=== PATIENT | male | born 1980 | race Caucasian/White ===

== ENCOUNTER 2018-06-27 08:55 | Emergency (ER) | payer BC, SELFPAY ==
[2018-06-27 09:00] VITALS: BP 136/90; PULSE 80; RESP 12; TEMP 37.1; O2SAT 98
--- NOTE | 2018-06-27 09:20 | W.ED.GENAD ---
Discharge Plan Disposition Patient Disposition: HOME Condition: Good Discharge Details Chief Complaint: Orthopedic Clinical Impression: Right calf pain Primary Care Provider: Jadon Tony ED Provider: Brijesh Waddell Home Meds and New Rx's Prescriptions: Continue mirtazapine 15 MG tablet 30 mg PO HS RF: 0 lorazepam 1 MG tablet 1 mg PO PRN PRNRF: 0 albuterol sulfate [ProAir HFA] 200 PUFF HFA aerosol inhaler 2 puff Inhalation PRN PRNRF: 0 ibuprofen 600 MG tablet 600 mg PO TID PRN PRN (Reason: Pain) Qty: 30 RF: 0 Discharge Instructions Instructions: Leg Pain (ED) Additional Instructions: follow up as scheduled with your primary care provider this week if you have fevers, significant worsening pain or your leg becomes swollen return to the emergency department take 1000mg tylenol and 600mg ibuprofen every 6 hours for pain as needed Medical Decision Making 37 yo male comes in with right upper lateral calf pain since yesterday with no known trauma. He states he did drink quite a lot of alcohol on Thursday night but denies falling or other trauma. He has pain with palpation to the right upper lateral calf. No swelling, redness or pain in mid calf, full rom of the knee and ankle with intact sensation and pulses, not cold or hot to touch. No fluctuance or crepitus or rashes. I suspect muscle strain as he has increased pain when walking up stairs. I did recommend u/s tomorrow to eval for possible dvt though low risk but he declined as he'd rather wait and see his pcp on Thursday. He was given return precautions and advise on dosing for tylenol and ibuprofen Differential Diagnosis calf strain, joe's cyst, dvt HPI General Mode of arrival: ambulatory. Date/Time Provider Initiated Documentation: 06/27/18 09:05. Limitations to Documentation: no limitations. Information obtained by: patient. History of Present Illness 37 year old M presents to the emergency department with the chief complaint of right calf pain, described as mild, with intensity rated at 3. Quality is described as aching, and is localized to the right and lower extremity. Patient reports no radiation. Patient started experiencing this day(s) (1) and it has been constant. No relieving factors improve symptom(s), Movement worsens symptoms . Patient notes no other symptoms.. Patient did receive the following treatments prior to arrival, none Related Data Home Medications Medication Instructions Recorded Confirmed albuterol sulfate [ProAir HFA] 2 puff INHALATION PRN PRN 12/04/15 06/27/18 lorazepam 1 mg PO PRN PRN 12/04/15 06/27/18 mirtazapine 30 mg PO HS 12/04/15 06/27/18 Allergies Allergy/AdvReac Type Severity Reaction Status Date / Time No Known Allergies Allergy Unverified 06/27/18 09:24 General Stated Complaint: Orthopedic WAYNE: 4 Review of Systems Review of Systems All systems reviewed & are unremarkable except as noted in HPI and below Constitutional Denies chills, Denies fever(s) and Denies weakness ENT Denies change in voice Cardiovascular Denies dyspnea Respiratory Denies dyspnea Gastrointestinal Denies abdominal pain, Denies nausea and Denies vomiting Genitourinary Denies dysuria Musculoskeletal Denies joint swelling Integumentary/Breasts Denies rash Neurologic Denies weakness [facility] Social History Smoking/Tobacco Use Status: Current every day Exam Const General: no acute distress Orientation: alert HENMT Head: normal to inspection Ears: external ears normal General nose exam: external nose normal Mouth: moist mucous membranes Eyes General: appearance normal, both eyes and all related structures Neck Neck: normal visual inspection Resp Effort & Inspection: normal respiratory effort and able to speak in complete sentences Cardio Rate: regular rate Skin General skin exam: no rashes or lesions noted Neuro General: alert and oriented x3 Extrem General: normal to inspection Psych Mental Status: mental status grossly normal Course Vital Signs Temperature 37.1 C 06/27/18 09:00 Pulse 80 06/27/18 09:00 Respiratory Rate 12 06/27/18 09:00 Blood Pressure 136/90 06/27/18 09:00 Pulse Oximetry 98 06/27/18 09:00 Temperature 37.1 C 06/27/18 09:00 Temperature Source Temporal Artery Scan 06/27/18 09:00 Pulse 80 06/27/18 09:00 Respiratory Rate 12 06/27/18 09:00 Blood Pressure 136/90 06/27/18 09:00 Blood Pressure Position Sitting 06/27/18 09:00 Pulse Oximetry 98 06/27/18 09:00 Oxygen Delivery Method Room Air 06/27/18 09:00 Oxygen Flow Rate 0 06/27/18 09:00 Pain Level 3 06/27/18 09:13 Comment 06/27/18 09:00
--- NOTE | 2018-06-27 09:24 | ED.GENADUL_ITS ---
Discharge Plan Disposition Patient Disposition: HOME Condition: Good Discharge Details Chief Complaint: Orthopedic Clinical Impression: Right calf pain Primary Care Provider: Jadon Tony ED Provider: Brijesh Waddell Home Meds and New Rx's Prescriptions: Continue mirtazapine 15 MG tablet 30 mg PO HS RF: 0 lorazepam 1 MG tablet 1 mg PO PRN PRNRF: 0 albuterol sulfate [ProAir HFA] 200 PUFF HFA aerosol inhaler 2 puff Inhalation PRN PRNRF: 0 ibuprofen 600 MG tablet 600 mg PO TID PRN PRN (Reason: Pain) Qty: 30 RF: 0 Discharge Instructions Instructions: Leg Pain (ED) Additional Instructions: follow up as scheduled with your primary care provider this week if you have fevers, significant worsening pain or your leg becomes swollen return to the emergency department take 1000mg tylenol and 600mg ibuprofen every 6 hours for pain as needed Medical Decision Making 37 yo male comes in with right upper lateral calf pain since yesterday with no known trauma. He states he did drink quite a lot of alcohol on Thursday night but denies falling or other trauma. He has pain with palpation to the right upper lateral calf. No swelling, redness or pain in mid calf, full rom of the knee and ankle with intact sensation and pulses, not cold or hot to touch. No fluctuance or crepitus or rashes. I suspect muscle strain as he has increased pain when walking up stairs. I did recommend u/s tomorrow to eval for possible dvt though low risk but he declined as he'd rather wait and see his pcp on Thursday. He was given return precautions and advise on dosing for tylenol and ibuprofen Differential Diagnosis calf strain, joe's cyst, dvt HPI General Mode of arrival: ambulatory . Date/Time Provider Initiated Documentation: 06/27/18 09:05 . Limitations to Documentation: no limitations . Information obtained by: patient . History of Present Illness 37 year old M presents to the emergency department with the chief complaint of right calf pain, described as mild, with intensity rated at 3. Quality is described as aching, and is localized to the right and lower extremity. Patient reports no radiation. Patient started experiencing this day(s) (1) and it has been constant. No relieving factors improve symptom(s), Movement worsens symptoms . Patient notes no other symptoms.. Patient did receive the following treatments prior to arrival, none Related Data Home Medications Medication Instructions Recorded Confirmed albuterol sulfate [ProAir HFA] 2 puff INHALATION PRN PRN 12/04/15 06/27/18 lorazepam 1 mg PO PRN PRN 12/04/15 06/27/18 mirtazapine 30 mg PO HS 12/04/15 06/27/18 Allergies Allergy/AdvReac Type Severity Reaction Status Date / Time No Known Allergies Allergy Unverified 06/27/18 09:24 General Stated Complaint: Orthopedic WAYNE: 4 Review of Systems Review of Systems All systems reviewed & are unremarkable except as noted in HPI and below Constitutional Denies chills, Denies fever(s) and Denies weakness ENT Denies change in voice Cardiovascular Denies dyspnea Respiratory Denies dyspnea Gastrointestinal Denies abdominal pain, Denies nausea and Denies vomiting Genitourinary Denies dysuria Musculoskeletal Denies joint swelling Integumentary/Breasts Denies rash Neurologic Denies weakness [facility] Social History Smoking/Tobacco Use Status: Current every day Exam Const General: no acute distress Orientation: alert HENMT Head: normal to inspection Ears: external ears normal General nose exam: external nose normal Mouth: moist mucous membranes Eyes General: appearance normal, both eyes and all related structures Neck Neck: normal visual inspection Resp Effort & Inspection: normal respiratory effort and able to speak in complete sentences Cardio Rate: regular rate Skin General skin exam: no rashes or lesions noted Neuro General: alert and oriented x3 Extrem General: normal to inspection Psych Mental Status: mental status grossly normal Course Vital Signs Temperature 37.1 C 06/27/18 09:00 Pulse 80 06/27/18 09:00 Respiratory Rate 12 06/27/18 09:00 Blood Pressure 136/90 06/27/18 09:00 Pulse Oximetry 98 06/27/18 09:00 Temperature 37.1 C 06/27/18 09:00 Temperature Source Temporal Artery Scan 06/27/18 09:00 Pulse 80 06/27/18 09:00 Respiratory Rate 12 06/27/18 09:00 Blood Pressure 136/90 06/27/18 09:00 Blood Pressure Position Sitting 06/27/18 09:00 Pulse Oximetry 98 06/27/18 09:00 Oxygen Delivery Method Room Air 06/27/18 09:00 Oxygen Flow Rate 0 06/27/18 09:00 Pain Level 3 06/27/18 09:13 Comment 06/27/18 09:00
== END 2018-06-27 09:37 | disposition home or self-care (01) ==
LOC: ER 09:34
PROVIDERS: Emergency Provider Emergency Medicine; PCP Specialist/Technologist Athletic Trainer
DX: M79.661 Pain in right lower leg (principal)
CPT/HCPCS: 99282

== ENCOUNTER 2018-10-11 18:40 | Emergency (ER) | payer BC, SELFPAY ==
--- NOTE | 2018-10-11 18:41 | W.ED.GENAD ---
Discharge Plan Disposition Patient Disposition: HOME Condition: Stable Discharge Details Chief Complaint: RespSymp Clinical Impression: Influenza Reason For Visit: resp/fever Primary Care Provider: Jadon Tony ED Provider: Brijesh Waddell Home Meds and New Rx's Prescriptions: New oseltamivir [Tamiflu] 75 mg capsule 75 mg PO BID 5 Days Qty: 10 RF: 0 Continued mirtazapine 15 MG tablet 30 mg PO HS RF: 0 lorazepam 1 MG tablet 1 mg PO PRN PRNRF: 0 albuterol sulfate [ProAir HFA] 200 PUFF HFA aerosol inhaler 2 puff Inhalation PRN PRNRF: 0 ibuprofen 600 mg Tablet 600 mg PO PRNRF: 0 Discharge Instructions Additional Instructions: Try to drink fluids to stay hydrated you can take 1000mg tylenol and 600mg ibuprofen every 6 hours for pain as needed for pain/fever follow up with your primary care provider within a week if not better if you feel you are more ill, have difficulty breathing or persistent vomit return to the emergency deparment Stand Alone Forms: Work Release Medical Decision Making 38 yo male with hx of asthma, smoker, who comes in with chief complaint of not feeling well for 3 days. States he has had intermittent fevers to 103 and chills, dry cough, myalgias, and diarrhea. Denies rashes, neck stiffness, abdominal pain, rashes or recent travel. Denies alcohol or drug use. 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 Clear lungs on exam and his constellation of symptoms do not fit with clinical picture of pna. denies ivdu, no murmurs or other stigamta of endocarditis. Do not feel labs or imaging indicated, suspect he has the flu and given no improved symptms after 3 days and hx of asthma will tx with tamiflu. He is tolerating PO and stable for outpatient management. Advsised f/u with pcp and return precautions given Differential Diagnosis uri, influenza, pna HPI General Mode of arrival: ambulatory. Date/Time Provider Initiated Documentation: 10/11/18 18:41. Limitations to Documentation: no limitations. Information obtained by: patient. History of Present Illness 38 year old M presents to the emergency department with the chief complaint of myalgias and fever, described as moderate, with intensity rated at 4. Patient reports no radiation. Patient started experiencing this day(s) (3) and it has been constant and intermittent. No relieving factors improve symptom(s), No exacerbating factors reported . Patient notes other (diarrhea). Patient did receive the following treatments prior to arrival, none Related Data Home Medications Medication Instructions Recorded Confirmed albuterol sulfate [ProAir HFA] 2 puff INHALATION PRN PRN 12/04/15 10/11/18 lorazepam 1 mg PO PRN PRN 12/04/15 10/11/18 mirtazapine 30 mg PO HS 12/04/15 10/11/18 ibuprofen 600 mg PO PRN 10/11/18 oseltamivir [Tamiflu] 75 mg PO BID 5 Days #10 cap 10/11/18 Previous Rx's Medication Instructions Recorded oseltamivir [Tamiflu] 75 mg PO BID 5 Days #10 cap 10/11/18 Allergies Allergy/AdvReac Type Severity Reaction Status Date / Time No Known Allergies Allergy Unverified 06/27/18 09:24 General WAYNE: 4 Review of Systems Review of Systems All systems reviewed & are unremarkable except as noted in HPI and below Cardiovascular Denies chest pain and Denies dyspnea Respiratory Denies cough and Denies dyspnea Gastrointestinal Denies abdominal pain, Denies nausea and Denies vomiting Integumentary/Breasts Denies rash PFSH Social History Smoking and Tabacco status: Current every day Exam Const General: no acute distress Orientation: alert HENMT Head: normal to inspection Ears: external ears normal General nose exam: external nose normal Mouth: moist mucous membranes Eyes General: appearance normal, both eyes and all related structures Neck Neck: normal visual inspection Resp Effort & Inspection: normal respiratory effort and able to speak in complete sentences Cardio Rate: regular rate Skin General skin exam: no rashes or lesions noted Neuro General: alert and oriented x3 Extrem General: normal to inspection Psych Mental Status: mental status grossly normal
[2018-10-11 18:58] VITALS: BP 135/90; PULSE 95; RESP 18; TEMP 36.8; O2SAT 97
--- NOTE | 2018-10-11 19:09 | ED.GENADUL_ITS ---
Discharge Plan Disposition Patient Disposition: HOME Condition: Stable Discharge Details Chief Complaint: RespSymp Clinical Impression: Influenza Reason For Visit: resp/fever Primary Care Provider: Jadon Tony ED Provider: Brijesh Waddell Home Meds and New Rx's Prescriptions: New oseltamivir [Tamiflu] 75 mg capsule 75 mg PO BID 5 Days Qty: 10 RF: 0 Continued mirtazapine 15 MG tablet 30 mg PO HS RF: 0 lorazepam 1 MG tablet 1 mg PO PRN PRNRF: 0 albuterol sulfate [ProAir HFA] 200 PUFF HFA aerosol inhaler 2 puff Inhalation PRN PRNRF: 0 ibuprofen 600 mg Tablet 600 mg PO PRNRF: 0 Discharge Instructions Additional Instructions: Try to drink fluids to stay hydrated you can take 1000mg tylenol and 600mg ibuprofen every 6 hours for pain as needed for pain/fever follow up with your primary care provider within a week if not better if you feel you are more ill, have difficulty breathing or persistent vomit return to the emergency deparment Stand Alone Forms: Work Release Medical Decision Making 38 yo male with hx of asthma, smoker, who comes in with chief complaint of not feeling well for 3 days. States he has had intermittent fevers to 103 and chills, dry cough, myalgias, and diarrhea. Denies rashes, neck stiffness, abdominal pain, rashes or recent travel. Denies alcohol or drug use. He is speaking in full sentences in clear lungs with no meningismus, no severe headaches to suggest handkerchief sample clerk infection. Clear lungs on exam and his constellation of symptoms do not fit with clinical picture of pna. denies ivdu, no murmurs or other stigamta of endocarditis. Do not feel labs or imaging indicated, suspect he has the flu and given no improved symptms after 3 days and hx of asthma will tx with tamiflu. He is tolerating PO and stable for outpatient management. Advsised f/u with pcp and return precautions given Differential Diagnosis uri, influenza, pna HPI General Mode of arrival: ambulatory . Date/Time Provider Initiated Documentation: 10/11/18 18:41 . Limitations to Documentation: no limitations . Information obtained by: patient . History of Present Illness 38 year old M presents to the emergency department with the chief complaint of myalgias and fever, described as moderate, with intensity rated at 4. Patient reports no radiation. Patient started experiencing this day(s) (3) and it has been constant and intermittent. No relieving factors improve symptom(s), No exacerbating factors reported . Patient notes other (diarrhea). Patient did receive the following treatments prior to arrival, none Related Data Home Medications Medication Instructions Recorded Confirmed albuterol sulfate [ProAir HFA] 2 puff INHALATION PRN PRN 12/04/15 10/11/18 lorazepam 1 mg PO PRN PRN 12/04/15 10/11/18 mirtazapine 30 mg PO HS 12/04/15 10/11/18 ibuprofen 600 mg PO PRN 10/11/18 oseltamivir [Tamiflu] 75 mg PO BID 5 Days #10 cap 10/11/18 Previous Rx's Medication Instructions Recorded oseltamivir [Tamiflu] 75 mg PO BID 5 Days #10 cap 10/11/18 Allergies Allergy/AdvReac Type Severity Reaction Status Date / Time No Known Allergies Allergy Unverified 06/27/18 09:24 General WAYNE: 4 Review of Systems Review of Systems All systems reviewed & are unremarkable except as noted in HPI and below Cardiovascular Denies chest pain and Denies dyspnea Respiratory Denies cough and Denies dyspnea Gastrointestinal Denies abdominal pain, Denies nausea and Denies vomiting Integumentary/Breasts Denies rash PFSH Social History Smoking and Tabacco status: Current every day Exam Const General: no acute distress Orientation: alert HENMT Head: normal to inspection Ears: external ears normal General nose exam: external nose normal Mouth: moist mucous membranes Eyes General: appearance normal, both eyes and all related structures Neck Neck: normal visual inspection Resp Effort & Inspection: normal respiratory effort and able to speak in complete sentences Cardio Rate: regular rate Skin General skin exam: no rashes or lesions noted Neuro General: alert and oriented x3 Extrem General: normal to inspection Psych Mental Status: mental status grossly normal
== END 2018-10-11 19:12 | disposition home or self-care (01) ==
PROVIDERS: Emergency Provider Emergency Medicine; PCP Specialist/Technologist Athletic Trainer
DX: J11.1 Influenza due to unidentified influenza virus with other respiratory manifestations (principal); J45.909 Unspecified asthma, uncomplicated; F17.210 Nicotine dependence, cigarettes, uncomplicated
CPT/HCPCS: 99283

== ENCOUNTER 2019-03-10 14:06 | Outpatient (REF) | payer BC, SELFPAY ==
[2019-03-10 22:03] LABS: ALT 77 U/L (12-78); AST 28 U/L (15-37); Albumin 4.5 g/dL (3.4-5.0); Alkaline Phosphatase 70 U/L (46-116); Anion Gap 12.1 mmol/L (3-11); BUN 15 mg/dL (7-18); Bilirubin, Total 0.5 mg/dL (0.2-1.0); CO2 23.9 mmol/L (21.0-32.0); CREATININE 0.88 mg/dL (0.70-1.30); Calcium 9.1 mg/dL (8.5-10.1); Calculated LDL 155 mg/dL; Chloride 104 mmol/L (98-107); Cholesterol 229 mg/dL (50-200); Glucose 89 mg/dL (70-100); HDL Cholesterol 41 mg/dL (40-60); Potassium 4.3 mmol/L (3.5-5.1); Sodium 140 mmol/L (136-145); Total Protein 7.8 g/dL (6.4-8.2); Triglyceride 165 mg/dL (30-150)
== END 2019-03-10 14:26 ==
LOC: NCHCN 14:06
PROVIDERS: PCP Specialist/Technologist Athletic Trainer; Visit Provider Specialist/Technologist Athletic Trainer
DX: Z00.00 Encounter for general adult medical examination without abnormal findings (principal); E78.5 Hyperlipidemia, unspecified; R79.89 Other specified abnormal findings of blood chemistry
CPT/HCPCS: 80053; 80061; 83721

== ENCOUNTER 2019-11-09 16:39 | Emergency (ER) | payer BC, SELFPAY ==
[2019-11-09] VITALS (38 sets, daily range): BP systolic 105–151; BP diastolic 70–110; PULSE 59–94; RESP 11–24; TEMP 37.1; O2SAT 93–97
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
[2019-11-09] MEDS: Normal Saline 1,000 ML 1000 ML IV (17:19)
[2019-11-09 17:22] LABS: Abs Immature Grans 0.02 k/cumm (0.0-0.09); Absolute Basophil Count 0.03 k/cumm (0.0-0.2); Absolute Eosinophil Count 0.16 k/cumm (0.0-0.7); Absolute Lymphocyte Count 2.76 k/cumm (1.2-3.4); Absolute Monocyte Count 0.77 k/cumm (0.11-0.7); Absolute Neutrophil Count 6.25 k/cumm (1.2-6.7); Basophils % 0.3; Eosinophils % 1.6; HCT 45.3 % (40.0-50.0); HGB 16.1 g/dL (13.5-17.5); Immature Grans % 0.2 %; Lymphocytes % 27.6; Mean Corp. HGB Concentration 35.5 g/dL (32.0-36.0); Mean Corpuscular Hemoglobin 31.1 pg (27.0-33.0); Mean Corpuscular Volume 87.6 fL (80-95); Mean Platelet Volume 9.3 fL (8.0-11.0); Monocytes % 7.7; Neutrophils % 62.6; Platelet Count 313 x1000/uL (130-400); RBC 5.17 m/cumm (4.50-6.00); RBC Distribution Width 12.8 % (11.8-14.1); White Blood Cell Count 9.99 k/cumm (4.4-10.8)
--- NOTE | 2019-11-09 17:30 | DI.RAD_ITS ---
EXAM: XR CHEST 2V PA LATERAL CLINICAL HISTORY: chest pain TECHNIQUE: 2D digital imaging was performed. COMPARISON: No exams were available for comparison FINDINGS: MEDIASTINUM: Normal. HEART: Normal. PULMONARY VASCULATURE: Normal. LUNGS: Clear. PLEURAL SPACE: No pleural effusion or pneumothorax. BONE:Normal. OTHER FINDINGS:Normal. IMPRESSION: No acute pulmonary findings. DATA REPOSITORY: RADIATION DOSE DELIVERED:
[2019-11-09 17:39] LABS: ALT 52 U/L (16-63); AST 22 U/L (15-37); Albumin 4.5 g/dL (3.4-5.0); Alkaline Phosphatase 65 U/L (46-116); Anion Gap 12.1 mmol/L (3-11); BUN 11 mg/dL (7-18); Bilirubin, Total 0.4 mg/dL (0.2-1.0); CO2 25.9 mmol/L (21.0-32.0); Calcium 9.6 mg/dL (8.5-10.1); Chloride 103 mmol/L (98-107); Glucose 97 mg/dL (74-106); Lipase 156 U/L (73-393); Potassium 3.7 mmol/L (3.5-5.1); Sodium 141 mmol/L (136-145); Total Protein 8.2 g/dL (6.4-8.2)
[2019-11-09 17:43] LABS: Troponin I < 0.05 ng/Ml (<0.06)
--- NOTE | 2019-11-09 17:48 | DI.VRAD_ITS ---
PROCEDURE INFORMATION: Exam: XR Chest, 2 Views Exam date and time: 11/09/2019 5:32 PM Age: 39 years old Clinical indication: Other: Chest pain TECHNIQUE: Imaging protocol: XR of the chest Views: 2 views. COMPARISON: CR LEFT RIBS TO INCLUDE CXR 06/07/2015 3:42 PM FINDINGS: Lungs: Unremarkable. No consolidation. Pleural space: Unremarkable. No pleural effusion. No pneumothorax. Heart/Mediastinum: Unremarkable. No cardiomegaly. Bones/joints: Unremarkable. IMPRESSION: No acute findings. Dictated and Authenticated by: Luan Hooper MD. Ordering:BALZE Gama MD
[2019-11-09 17:54] LABS: D-Dimer 152 ng/mlFEU (<500)
--- NOTE | 2019-11-09 19:06 | NUR.NOTE ---
Nursing Note:Pt resting in bed, texting on cell phone. No c/o or requests at this time. Waiting for troponin redraw
--- NOTE | 2019-11-09 20:11 | NUR.NOTE ---
Nursing Note:repeat trop drawn from R AC. Pt reports 0 pain.
[2019-11-09 20:55] LABS: Troponin I < 0.05 ng/Ml (<0.06)
== END 2019-11-09 21:55 | disposition home or self-care (01) ==
PROVIDERS: Emergency Provider Physician Assistant; PCP Specialist/Technologist Athletic Trainer
DX: R07.89 Other chest pain (principal); F41.9 Anxiety disorder, unspecified; R20.2 Paresthesia of skin; F17.210 Nicotine dependence, cigarettes, uncomplicated; Z63.5 Disruption of family by separation and divorce
CPT/HCPCS: 36415; 80053; 83690; 93005; 96360; 99285; 71046; 84484; 85025; 85379; 93010; 93225

== ENCOUNTER 2019-11-16 08:25 | Outpatient (CLI) | payer BC, SELFPAY ==
--- NOTE | 2019-11-17 09:20 | W.HOLTRPT ---
Date of service: 11/17/19 Time of Service: 09:20 Holter Monitor Report Holter Monitor Note: This was a Holter monitor that recorded for 1 day, 21 hours and 21-minute. Rhythm throughout was sinus. Average heart rate was 82. Minimum heart rate was 54 and maximum heart rate 163. There were very rare atrial and ventricular ectopic beats. There was no atrial fibrillation or ventricular tachycardia. There were no pauses No patient symptoms were reported
== END 2019-11-16 08:45 ==
PROVIDERS: PCP Specialist/Technologist Athletic Trainer; Visit Provider Physician Assistant
DX: R07.89 Other chest pain (principal); R42 Dizziness and giddiness; R20.2 Paresthesia of skin
CPT/HCPCS: 93226

== ENCOUNTER 2019-12-08 00:18 | Outpatient (CLI) | payer BC, SELFPAY ==
--- NOTE | 2019-12-08 08:00 | ETT_ITS ---
APPROVED REPORT Exam: Exercise Treadmill Patient Location: Out-Patient Room/Bed: Stress Nurse: Mariela Goetz RN BMI: 27.19 Baseline Rhythm: Sinus Rhythm Indications: Chest pain. Medical History Medical History: Depression Allergies: No known drug allergies Cardiac Risk Factors: Smoking, Asthma Pretest Chest Pain Characteristics: Non-exertional Chest pain Exercise History: Indeterminate Lung Sounds: Clear to auscultation Heart Sounds: Regular Stress Test Details Test: Exercise stress testing was performed using a Darrell protocol. Rest Stress HR Resting HR Supine: 63 bpm Max Heart Rate (APMHR): 180 bpm Resting HR Standin bpm Target HR (85% APMHR): 153 bpm Max HR Achieved: 160 bpm % of APMHR: 88 Recovery HR: 87 bpm HR response to stress: Normal HR response to stress BP Resting BP Supine: 120/78 mmHg Resting BP Standin/80 mmHg Max BP: 148/84 mmHg Recovery BP: 128/80 mmHg BP response to stress: Normal blood pressure response to stress. ECG Resting ECG: Sinus Rhythm Stress ECG: Sinus Tachycardia ST Change: No significant ST segment changes Arrhythmia: None Recovery ECG: Sinus Rhythm Recovery ST Change: No significant ST segment changes Recovery Arrhythmia: None Clinical Reason for Termination: Fatigue Stress Symptoms: General Fatigue Exercise duration: 10 min01 sec Highest Stage Reached: Stage 4: 4.2 mph at 16% grade. Exercise capacity: 11.83 METs Functional Capacity: Average Capacity Angina Score: None Stress ECG Conclusion 1. The patient exercised for 10 minutes (12 METS). Rate-pressure product was 22,000. Exercise was s topped due to fatigue. 2. The patient had no symptoms suggestive of exercise-induced angina. 3. No ischemia on the ECG portion of the exam. 4. The Jett Score (10) estimates an annual cardiovascular mortality of 0% and a five year survival of 96% Using the Jett Score there is a low probability of any angiographic coronary disease. Stress Test Summary STAGE Time (mins) Speed (mph) Grade (%) HR BP SYMPTOMS METS Supine 63 120/78 Standing 92 124/80 1 3 1.7 10 95 128/82 4.6 2 6 2.5 12 113 130/86 7 3 9 3.4 14 146 142/84 10.2 4 12 4.2 16 160 12.9 1 min recovery 125 148/84 3 min recovery 92 140/78 6 min recovery 87 128/80
== END 2019-12-08 00:38 ==
PROVIDERS: PCP Specialist/Technologist Athletic Trainer; Visit Provider Nurse Practitioner Family
DX: R07.89 Other chest pain (principal); F32.9 Major depressive disorder, single episode, unspecified; J45.909 Unspecified asthma, uncomplicated; F17.210 Nicotine dependence, cigarettes, uncomplicated
CPT/HCPCS: 93017

== ENCOUNTER 2020-01-29 12:23 | Emergency (ER) | payer BC, SELFPAY ==
[2020-01-29 12:26] VITALS: BP 140/84; PULSE 80; RESP 16; TEMP 36.4; O2SAT 99
--- NOTE | 2020-01-29 13:00 | ED.GENADUL_ITS ---
Discharge Plan Disposition Patient Disposition: HOME Condition: Good Discharge Details Chief Complaint: Laceration Clinical Impression: Finger laceration Primary Care Provider: Jadon Tony ED Provider: Helen Ribera Home Meds and New Rx's Prescriptions: Continued mirtazapine 15 MG tablet 30 mg PO HS RF: 0 lorazepam 1 MG tablet 1 mg PO PRN PRNRF: 0 albuterol sulfate [ProAir HFA] 200 PUFF HFA aerosol inhaler 2 puff Inhalation PRN PRNRF: 0 ibuprofen 600 mg Tablet 600 mg PO Q4H PRN PRNRF: 0 Discharge Instructions Instructions: Finger Laceration (ED) Additional Instructions: Keep wound clean, dry, covered. Tylenol and/or ibuprofen as needed for discomfort. Please keep current dressing on until tomorrow. After that time, please cover with Band-Aid and cover gloves when appropriate. You may wash with running water and soap. Monitor wound for signs infection bleeding redness, warmth, drainage, increased pain, fever/chills. If you develop these or other new/worsening symptoms please seek care urgently once again. Return in 1 week for suture removal. Tetanus was updated today. Referrals: Jadon Tony [Primary Care Provider] - Discharge Data Discharge Date/Time-TO BE ENTERED AT DEPARTURE: 01/29/20 13:47 Medical Decision Making Patient is a pleasant [id number] male presenting today with chief complaint of laceration to the left ring finger. He reports a prior to arrival he was trying to place a screen on his phone when he slipped with his stool and suffered a 2 cm laceration along the ulnar side of the left ring finger. Sen sation is intact. No active bleeding. Tetanus is out of date. He denies other injury at the time of the incident. On exam, patient has a 2 cm curvilinear laceration. This is into the subcutaneous tissue but all deep structures seem to be intact. Sensation is intact distal to this area. Expressed capillary refill. Patient and I discussed wound closure options. We discuswsed risks/benefits of clsure with adhesive. He voices understanding and wishes to proceed. Please see procedure note. Digital block was preformed using standard, sterile technique. This sufficiently anesthetized the area. Wound was then copiously irregated with sterile saline, cleansed to base in a bloodless field with no fb or debris noted. Wound edges easily reapproximated. #3 simple interupted stitches were placed. Bulky, sterile dressing was then applied. Patient and I discussed wound care in depth. We discussed care of stitches. He was given return precuations, in particular, signs of infection. He will return in one week for reevaluation and suture removal. All of his quesitons and concerns were addressed, he is in agreement with this plan. Tetanus updated today. HPI General Mode of arrival: ambulatory . Date/Time Provider Initiated Documentation: 01/29/20 12:31 . Limitations to Documentation: no limitations . Information obtained by: patient and RN notes reviewed . History of Present Illness 39 year old M presents to the emergency department with the chief complaint of left ring finger laceration, described as mild, with intensity rated at 2. Quality is described as aching, and is localized to the left and upper extremity. Patient reports no radiation. Patient started experiencing this minute(s) and it has been constant. No relieving factors improve symptom(s), No exacerbating factors reported . Patient notes no other symptoms.. Patient did receive the following treatments prior to arrival, none Related Data Home Medications Medication Instructions Recorded Confirmed albuterol sulfate [ProAir HFA] 2 puff INHALATION PRN PRN 12/04/15 01/29/20 lorazepam 1 mg PO PRN PRN 12/04/15 01/29/20 mirtazapine 30 mg PO HS 12/04/15 01/29/20 ibuprofen 600 mg PO Q4H PRN PRN 10/11/18 01/29/20 Allergies Allergy/AdvReac Type Severity Reaction Status Date / Time No Known Allergies Allergy Unverified 01/29/20 12:31 General Stated Complaint: Laceration WAYNE: 3 Review of Systems Constitutional Constitutional: Reports as per HPI, Denies chills and Denies fever(s) Musculoskeletal Musculoskeletal: Reports as per HPI Integumentary/Breasts Skin/Breast: Reports as per HPI Neurologic Neurologic: Reports as per HPI, Denies sensory deficit and Denies paresthesias [facility] Social History Smoking/Tobacco Use Status: Current every day Tobacco Type: cigarettes Alcohol Intake: current Alcohol Intake frequency: a few times a week Drug use: Occasionally Substance use type: marijuana Do you feel safe at home: Yes Do you feel safe in your relationship?: Yes Exam Const General: cooperative, healthy appearing, comfortable, no acute distress and well developed Nutritional Appearance: average body habitus and well nourished Orientation: alert and awake Resp Effort & Inspection: normal respiratory effort, able to speak in complete sentences and no respiratory distress Cardio Rate: regular rate Rhythm: regular rhythm Skin Trauma: laceration (as drawn below) Neuro General: patient alert and patient awake Cognition: normal cognition Speech: speech normal Gait: normal gait Sensory Exam: no sensory deficits noted Extrem Left upper extremity: normal to inspection, full ROM, normal capillary refill, no joint enlargement and hand Details: abnormal to inspection (laceration as drawn below) Hand/finger images: 1. Curvilinear 2 cm laceration into the subcutaneous tissue. No deep structures involved. Sensation is intact distally. No active bleeding. Full range of motion. Psych Appearance: grossly normal and well kempt Mental Status: mental status grossly normal Speech and Movement: speech and movement normal Course Vital Signs Vital signs: Vital Signs Temperature 36.4 C L 01/29/20 12:26 Pulse 80 01/29/20 12:26 Respiratory Rate 16 01/29/20 12:26 Blood Pressure 140/84 01/29/20 12:26 Pulse Oximetry 99 01/29/20 12:26 Temperature 36.4 C L 01/29/20 12:26 Temperature Source Tympanic 01/29/20 12:26 Pulse 80 01/29/20 12:26 Respiratory Rate 16 01/29/20 12:26 Respiratory Effort 01/29/20 12:31 Blood Pressure 140/84 01/29/20 12:26 Blood Pressure Position Sitting 01/29/20 12:26 Pulse Oximetry 99 01/29/20 12:26 Oxygen Delivery Method Room Air 01/29/20 12:26 Oxygen Flow Rate 0 01/29/20 12:26 Pain Level 2 01/29/20 12:26 Procedures Laceration Laceration 1: Site: hand Side (If applicable): left Size (cm): 2 Description: irregular and clean Depth: simple, single layer Local Anesthetic: Lidocaine 1% Amount of anesthesia used (mL): 5 (digital block) Pre-repair: wound explored, irrigated extensively and deep structures intact Skin layer closed with: nylon Size (cm): 5-0 Number of sutures: 3 Technique: simple, interrupted
[2020-01-29] MEDS: Lidocaine 1% Multi-Dose 50 ML VIAL (13:24)
[2020-01-29] MEDS: Lidocaine/Epinephri/Tetracaine Topical Gel 3 ML (13:24)
[2020-01-29 13:58] VITALS: BP 140/84; PULSE 80; RESP 16; TEMP 36.4; O2SAT 99
== END 2020-01-29 13:47 | disposition home or self-care (01) ==
PROVIDERS: Emergency Provider Physician Assistant; PCP Specialist/Technologist Athletic Trainer
DX: S61.215A Laceration without foreign body of left ring finger without damage to nail, initial encounter (principal); W26.8XXA Contact with other sharp object(s), not elsewhere classified, initial encounter
CPT/HCPCS: 12001; 90471

== ENCOUNTER 2020-12-20 15:44 | Outpatient (REF) | payer BC, SELFPAY ==
[2020-12-20 16:34] LABS: ALT 43 U/L (16-63); AST 14 U/L (15-37); Albumin 4.7 g/dL (3.4-5.0); Alkaline Phosphatase 72 U/L (46-116); Anion Gap 11.5 mmol/L (3-11); BUN 12 mg/dL (7-18); Bilirubin, Total 0.3 mg/dL (0.2-1.0); CO2 25.5 mmol/L (21.0-32.0); CREATININE 0.8 mg/dL (0.70-1.30); Calcium 9.3 mg/dL (8.5-10.1); Calculated LDL 140 mg/dL (<100); Chloride 104 mmol/L (98-107); Cholesterol 208 mg/dL (<200); Glucose 94 mg/dL (74-106); HDL Cholesterol 41 mg/dL (40-60); Potassium 4.1 mmol/L (3.5-5.1); Sodium 141 mmol/L (136-145); TSH (W/Ref FT4) 1.03 uIU/mL (0.36-3.74); Triglyceride 139 mg/dL (<150)
[2020-12-21 11:27] LABS: HBs Antibody, Quant <3.1 mIU/mL (See Note); Hepatitis B Surface Ab Negative (See Note)
[2020-12-21 11:34] LABS: Hepatitis B Surface Ag Negative (Negative)
[2020-12-21 12:05] LABS: Hepatitis C Ab w Rflx HCV PCR Negative (Negative)
== END 2020-12-20 15:45 | disposition home or self-care (01) ==
LOC: NCHCN 15:44
PROVIDERS: PCP Specialist/Technologist Athletic Trainer; Visit Provider Nurse Practitioner Family
DX: R10.11 Right upper quadrant pain (principal); E78.5 Hyperlipidemia, unspecified; R94.5 Abnormal results of liver function studies; R53.83 Other fatigue; Z11.59 Encounter for screening for other viral diseases
CPT/HCPCS: 80053; 80061; 86706; 86803; 87340; 84443

== ENCOUNTER 2021-03-15 17:56 | Outpatient (REF) | payer BC, SELFPAY ==
[2021-03-15 20:56] LABS: Anion Gap 10.1 mmol/L (3-11); BUN 11 mg/dL (7-18); CO2 26.9 mmol/L (21.0-32.0); Calcium 9.3 mg/dL (8.5-10.1); Chloride 106 mmol/L (98-107); Glucose 93 mg/dL (74-106); Potassium 4.1 mmol/L (3.5-5.1); Sodium 143 mmol/L (136-145)
[2021-03-15 20:58] LABS: Bilirubin Negative (Negative); Blood Negative (Negative); Clarity Clear (Clear); Glucose Negative (Negative); Ketones Negative (Negative); Leukocyte Esterase Negative (Negative); Nitrite Negative (Negative); Specific Gravity >= 1.030 (1.005-1.025); Urobilinogen 0.2 EU/dL (Up TO 0.2)
== END 2021-03-15 17:57 | disposition home or self-care (01) ==
LOC: LBN 17:56
PROVIDERS: PCP Specialist/Technologist Athletic Trainer; Visit Provider Physician Assistant Medical
DX: R35.0 Frequency of micturition (principal)
CPT/HCPCS: 80048; 81003

== ENCOUNTER 2021-06-17 10:51 | Outpatient (REF) | payer BC, SELFPAY ==
[2021-06-19 12:06] LABS: COVID-19 RT-PCR UVMMC Result Negative (Negative)
== END 2021-06-17 10:52 | disposition home or self-care (01) ==
LOC: NCHCN 10:51
PROVIDERS: PCP Specialist/Technologist Athletic Trainer; Visit Provider Nurse Practitioner Family
DX: Z20.822 Contact with and (suspected) exposure to COVID-19 (principal); J06.9 Acute upper respiratory infection, unspecified
CPT/HCPCS: U0003

== ENCOUNTER 2022-03-06 11:39 | Emergency (ER) | payer OTHER, SELFPAY ==
[2022-03-06 11:45] VITALS: BP 122/73; PULSE 92; RESP 14; TEMP 37.3; O2SAT 100
--- NOTE | 2022-03-06 12:02 | ED.GENADUL_ITS ---
Discharge Plan Disposition Patient Disposition: HOME Condition: Stable Discharge Details Clinical Impression: Bee sting reaction Primary Care Provider: Jadon Tony ED Provider: Coco Davis Home Meds and New Rx's Prescriptions: No Action mirtazapine 15 MG tablet 30 mg PO HS lorazepam 1 MG tablet 1 mg PO PRN PRN albuterol sulfate [ProAir HFA] 200 PUFF HFA aerosol inhaler 2 puff Inhalation PRN PRN ibuprofen 600 mg Tablet 600 mg PO Q4H PRN PRN Discharge Instructions Instructions: Insect Bite or Sting (ED), Allergies (ED) Additional Instructions: You may continue to take Benadryl 1 or 2 tablets every 6-8 hours as needed for hives or itching. Please take Claritin or loratadine which you can obtain [id number] daily for the next 5 to 7 days. You may also take Pepcid 1 or 2 tablets daily for the next 5 to 7 days. Follow up with primary care provider in 3-5 days. Return to ED sooner if any worsening swelling, trouble breathing or concerns. Increase oral fluids. Referrals: Jadon Tony [Primary Care Provider] - 5 days Medical Decision Making 41-year-old male presents to the ER with chief complaint of allergic reaction after being stung by approximately 10 yellow jackets approximately 30 minutes prior to arrival. Reports he was weed whacking and was stung on his legs. He then reports onset of trouble swallowing. He is speaking in full sentences no increased work of breathing no wheezing. Does have a history of anxiety. 125 mg IV Solu-Medrol, 10 mg Claritin p.o. ordered. 1 L normal saline. 40 mg Pepcid. 1240: Patient reevaluation, he has been observed in the ER for approximately an hour. He does report that it feels somewhat better. Breathing continues to be eupneic no wheezing no stridor noted. I did discuss home care including taking Claritin every day and Pepcid and that he may continue to take Benadryl 1 to 2 tablets every 6-8 hours as needed for hives and/or itching. He verbalized understanding. Significant other is at bedside who also verbalizes understanding. Patient to be discharged home with follow-up care and strict return instructions HPI General Mode of arrival: ambulatory . Date/Time Provider Initiated Documentation: 03/06/22 11:41 . Limitations to Documentation: no limitations . Information obtained by: patient, RN notes reviewed and old records reviewed . HPI Narrative: 41-year-old male presents to the ER with chief complaint of allergic reaction after being stung by approximately 10 yellow jackets approximately 30 minutes prior to arrival. Reports he was weed whacking and was stung on his legs. He then reports onset of trouble swallowing. He is speaking in full sentences no increased work of breathing no wheezing. Does have a history of anxiety. Related Data Home Medications Medication Instructions Recorded Confirmed albuterol sulfate 90 mcg/actuation 2 puff inhalation PRN PRN 12/04/15 03/06/22 aerosol inhaler (ProAir HFA) lorazepam 1 mg tablet 1 mg PO PRN PRN 12/04/15 03/06/22 mirtazapine 15 mg tablet 30 mg PO HS 12/04/15 03/06/22 ibuprofen 600 mg tablet 600 mg PO Q4H PRN PRN 10/11/18 03/06/22 Allergies Allergy/AdvReac Type Severity Reaction Status Date / Time No Known Allergies Allergy Unverified 03/06/22 11:50 General Stated Complaint: Allergic WAYNE: 3 Review of Systems All systems reviewed & are unremarkable except as noted in HPI and below Eyes Eyes: Denies blurry vision and Denies spots in vision ENT Ears, Nose, Mouth, and Throat: Reports as per HPI, Denies change in voice, Reports dry mouth, Denies lip swelling, Reports throat swelling (trouble swallowing) and Denies tongue swelling Cardiovascular Cardiovascular: Denies dyspnea Respiratory Respiratory: Reports as per HPI, Denies cough, Denies dyspnea, Denies stridor and Denies wheezing Integumentary/Breasts Skin/Breast: Reports other (Bee stings bilateral lower extremities) Allergic/Immunologic Allergic/Immunologic: Denies urticaria, Denies lip swelling, Reports throat swelling (trouble swallowing), Denies tongue swelling and Denies wheezing PFSH All Active Problems (Updated 03/06/22 @ 12:43 by Coco Davis NP) Bee sting reaction (Acute) Social History Smoking/Tobacco Use Status: Current every day Tobacco Type: cigarettes Smoking risk assessment performed?: Yes Alcohol Intake: current Alcohol Intake frequency: a few times a week Drug use: Daily Substance use type: marijuana Do you feel safe at home: Yes Do you feel safe in your relationship?: Yes Exam Narrative Exam Narrative: Constitutional: Alert and oriented x3. Appears stated age. Normal body habitus. Head: Normocephalic, no trauma. Eyes: Pupils PERRL, Red reflex noted, EOM's intact. Eyelids symmetrical without lesions, discharge, or swelling. ENT: Bilateral TM's WNL, External ear normal to inspection, no mastoid TTP, swelling, or erythema, Nasal turbinates WNL, no nasal discharge. Normal dentition, Posterior pharynx WNL, no exudate. Chest: RRR, Normal S1, S2, distal pulses intact. Resp: Lungs clear to auscultation bilaterally, no wheezes, rales, or rhonchi. Musculoskeletal: Normal gait, 5/5 strength to all four extremities. Skin: No suspicious rashes or lesions. Capillary refill less than 2 sec. Neurologic: Cranial nerves II-XII intact. Alert and oriented x 3. Motor: No deficits noted. Sensory: Intact bilaterally all 4 extremities. Reflexes: DTR's intact bilaterally.. Hematologic/Lymphatic: No ecchymosis, no lymphadenopathy. Course Vital Signs Vital signs: Vital Signs Temperature 37.3 C 03/06/22 11:45 Pulse 92 H 03/06/22 11:45 Respiratory Rate 14 03/06/22 11:45 Blood Pressure 122/73 03/06/22 11:45 Pulse Oximetry 100 03/06/22 11:45 Temperature 37.3 C 03/06/22 11:45 Temperature Source Temporal Artery Scan 03/06/22 11:45 Pulse 92 H 03/06/22 11:45 Respiratory Rate 14 03/06/22 11:45 Respiratory Effort Non-Labored 03/06/22 11:52 Respiratory Pattern Normal 03/06/22 11:52 Blood Pressure 122/73 03/06/22 11:45 Blood Pressure Position Supine 03/06/22 11:45 Pulse Oximetry 100 03/06/22 11:45 Oxygen Delivery Method Room Air 03/06/22 11:45 Oxygen Flow Rate 0 03/06/22 11:45 Pain Level 3 03/06/22 11:45 PAWSS Have you Been Recently Intoxicated or Drunk Within the Last 30 days?: Yes Have you Ever Experienced Previous Episodes of Alcohol Withdrawal?: No Have you ever Experienced Withdrawal Seizures?: No Have you ever Experienced Delirium Tremens(DT)s?: No Have you ever undergone Alcohol Rehabilitation Treatment (i.e, inpt ot outpatient treatment programs)?: No Have you ever Experienced Blackouts?: No Have you ever Combined Alcohol with other Downers within the last 90 days?: No Have you ever Combined Alcohol with any other Substance of Abuse during the last 90 days?: No Positive Blood Alcohol level on Presentation? [PCS.BAL]: No Evidence of Increased Autonomic Activity (i.e. HR>120, tremor, sweating, agitation, nausea)?: No Result: 1
[2022-03-06] MEDS: methylPREDNISolone SUCC 125 MG VIAL IVP (12:11)
[2022-03-06] MEDS: Loratidine 10 MG TAB PO (12:11)
[2022-03-06] MEDS: Normal Saline 1,000 ML 1000 ML IV (12:11)
[2022-03-06] MEDS: Famotidine 20 MG TAB 40 MG PO (12:15)
== END 2022-03-06 12:55 | disposition home or self-care (01) ==
PROVIDERS: Emergency Provider Registered Nurse Emergency; PCP Specialist/Technologist Athletic Trainer
DX: T63.441A Toxic effect of venom of bees, accidental (unintentional), initial encounter (principal); F17.210 Nicotine dependence, cigarettes, uncomplicated
CPT/HCPCS: 36415; 96361; 96374; 99284; J2930

== ENCOUNTER → 2022-03-27 15:01 | Outpatient (CLI) | payer OTHER, SELFPAY ==
--- NOTE | 2022-03-27 13:43 | DI.RAD_ITS ---
Exam(s) XR PELVIS AP EXAM: XR PELVIS AP CLINICAL HISTORY: CHRONIC PAIN. TECHNIQUE: 2D digital imaging was performed. COMPARISON: No exams were available for comparison FINDINGS: Single view. No evidence of pelvic nor hip fracture. No degenerative changes. Bone density normal. No osseous l esions. SI joints appear unremarkable. IMPRESSION: No significant radiographic findings. DATA REPOSITORY: RADIATION DOSE DELIVERED:
--- NOTE | 2022-03-27 13:44 | DI.RAD_ITS ---
Exam(s) XR LUMBAR SPINE COMPLETE EXAM: XR LUMBAR SPINE COMPLETE CLINICAL HISTORY: CHRONIC LOW BACK PAIN, M54.59. TECHNIQUE: 2D digital imaging was performed. COMPARISON: No exams were available for comparison FINDINGS: Five views There is sacralization of the L5 segment and there are rudimentary 12th ribs No evidence of fracture. No scoliosis. No osseous lesions. However, there is multilevel disc space narrowing at the lower 3 levels. There is also mild anteroli sthesis L5 upon S1 and retrolisthesis L4 upon L5. There is posterior bony ridging at L4-5. Spleen e lement of canal stenosis at this level. Minimal facet joint degenerative changes. No osseous lesion s. Bone density normal IMPRESSION: Findings as above. If clinically indicated follow-up MRI can be performed for added sensitivity and specificity. Also recommend frontal view of the thoracic spine 2 aid in accurate counting of vertebr al bodies, given the transitional anatomy here. DATA REPOSITORY: RADIATION DOSE DELIVERED:
== END ==
PROVIDERS: PCP Nurse Practitioner Family; Visit Provider Nurse Practitioner Family
DX: M43.16 Spondylolisthesis, lumbar region (principal); M43.17 Spondylolisthesis, lumbosacral region
CPT/HCPCS: 72110; 72170

== ENCOUNTER 2022-11-20 16:00 | Outpatient (REF) | payer OTHER, SELFPAY ==
[2022-11-20 15:36] LABS: HCT 44.6 % (40.0-50.0); HGB 15.8 g/dL (13.5-17.5); MCH 31.2 pg (27.0-33.0); MCHC 35.4 % (32.0-36.0); MCV 88 fL (80-95); MPV 9.6 fL (8.0-11.0); Platelet Count 297 10^3/uL (130-400); RBC 5.06 10^6/uL (4.36-5.78); RDW 12.6 % (11.8-14.1); WBC 7.47 10^3/uL (4.4-10.8)
[2022-11-20 16:07] LABS: TSH (W/Ref FT4) 1.23 uIU/mL (0.36-3.74)
[2022-11-20 16:17] LABS: Vitamin D 25 Total 17.3 ng/mL (30-100)
[2022-11-25 17:27] LABS: Testosterone, Free 7.25 ng/dL (4.46-17.1); Testosterone, Total 339 ng/dL (240-950)
== END 2022-11-20 16:01 | disposition home or self-care (01) ==
LOC: NCHCN 16:00
PROVIDERS: PCP Nurse Practitioner Family; Visit Provider Nurse Practitioner Family
DX: F32.89 Other specified depressive episodes (principal); F41.8 Other specified anxiety disorders; R53.83 Other fatigue; E55.9 Vitamin D deficiency, unspecified
CPT/HCPCS: 82306; 84402; 84403; 85027; 84443

== ENCOUNTER 2023-02-19 15:41 | Outpatient (REF) | payer OTHER, SELFPAY ==
[2023-02-19 20:23] LABS: ALT 106 U/L (16-63); AST 44 U/L (15-37); Albumin 4.3 g/dL (3.4-5.0); Alkaline Phosphatase 80 U/L (46-116); Anion Gap 11.9 mmol/L (3-11); BUN 19 mg/dL (7-18); Bilirubin, Total 0.5 mg/dL (0.2-1.0); CO2 25.1 mmol/L (21.0-32.0); Calcium 9.1 mg/dL (8.5-10.1); Chloride 103 mmol/L (98-107); Estimated GFR 95.77 (mL/min/1.73m2); Glucose 138 mg/dL (74-106); Sodium 140 mmol/L (136-145); Total Protein 7.8 g/dL (6.4-8.2)
[2023-02-19 20:27] LABS: Hemoglobin A1C 5.3 % (<5.7)
[2023-02-19 20:46] LABS: Vitamin D 25 Total 49.7 ng/mL (30-100)
== END 2023-02-19 15:42 | disposition home or self-care (01) ==
LOC: NCHCN 15:41
PROVIDERS: PCP Nurse Practitioner Family; Visit Provider Nurse Practitioner Family
DX: E55.9 Vitamin D deficiency, unspecified (principal); E78.5 Hyperlipidemia, unspecified; Z00.00 Encounter for general adult medical examination without abnormal findings
CPT/HCPCS: 80053; 82306; 83036

== ENCOUNTER 2023-02-20 13:19 | Emergency (ER) | payer OTHER, SELFPAY ==
[2023-02-20] VITALS (17 sets, daily range): BP systolic 118–153; BP diastolic 74–98; PULSE 62–83; RESP 11–24; O2SAT 92–100
--- NOTE | 2023-02-20 13:15 | RT.EKG_ITS ---
APPROVED REPORT Exam: Resting ECG Reason for Exam: chest pain Patient Location: E HR:73 bpm ECG Measurements Heart Rate 73 AXIS NM 153 P 36 QRSd 92 QRS 61 QT 380 T 15 QTc 420 Conclusion Sinus rhythm...normal P axis, V-rate 60- 99 ST elev, probable normal early repol pattern...ST elevation, age<55
--- NOTE | 2023-02-20 13:30 | DI.RAD_ITS ---
Exam(s) XR PORTABLE CHEST AP EXAM: XR PORTABLE CHEST AP CLINICAL HISTORY: cp TECHNIQUE: 2D digital imaging was performed. COMPARISON: CR,XR XR CHEST 2V PA LATERAL from 11/09/2019 FINDINGS: LUNGS: Clear. No pleural abnormality seen. HEART: Normal size. AORTA: Normal diameter. BONES: Unremarkable for age. Soft tissues: Unremarkable. IMPRESSION: No acute findings. DATA REPOSITORY: RADIATION DOSE DELIVERED:
--- NOTE | 2023-02-20 13:32 | ED.GENADUL_ITS ---
Discharge Plan Disposition Patient Disposition: Home Condition: Stable Discharge Details Clinical Impression: Chest pain, Panic attack Primary Care Provider: Dayanna Mckeon ED Provider: Austin Bailey Home Meds and New Rx's Prescriptions: No Action mirtazapine 15 MG tablet 15 mg PO HS lorazepam 1 MG tablet 1 mg PO PRN PRN albuterol sulfate [ProAir HFA] 200 PUFF HFA aerosol inhaler 2 puff Inhalation PRN PRN ibuprofen 600 mg Tablet 600 mg PO Q4H PRN PRN Discharge Instructions Instructions: Chest Pain (ED), Panic Attack (ED) HPI General Date/Time Provider Initiated Documentation: 02/20/23 13:22 . History of Present Illness described as moderate, Quality is described as other (numbness/tingling, anxious), HPI Narrative: 42 year old male with hx of anxiety/panic attack, presents to the with c/o dizziness, cp, L arm tingling, today. He says that he was working outside and started to feel a little dizzy. He thought it was probably due to the heat so started to try and hydrate well, but says that he then felt a tingling in his L arm, and a tingling in both feet. He says that he had a tingling in his chest, more then a pain. He went inside AC, took 0.5 mg ativan at home that he uses for anxiety, but hasn't helped. Related Data Home Medications Medication Instructions Recorded Confirmed albuterol sulfate 90 mcg/actuation 2 puff inhalation PRN PRN 12/04/15 02/20/23 aerosol inhaler (ProAir HFA) lorazepam 1 mg tablet 1 mg PO PRN PRN 12/04/15 02/20/23 mirtazapine 15 mg tablet 15 mg PO HS 12/04/15 02/20/23 ibuprofen 600 mg tablet 600 mg PO Q4H PRN PRN 10/11/18 02/20/23 Allergies Allergy/AdvReac Type Severity Reaction Status Date / Time bupropion [From Wellbutrin] AdvReac Other (See Unverified 02/20/23 13:28 Comment) General Stated Complaint: GenMedical WAYNE: 3 Review of Systems Narrative: CONST: no fever or chills HEENT: no sore throat SKIN: no rashes PULM: no sob, no cough CARD: +cp, no palpitations ABD: no abd pain EXTR: no swelling NEURO: No focal weakness PFSH All Active Problems (Updated 02/20/23 @ 14:32 by Austin Bailey MD) Chest pain (Acute) Panic attack (Acute) Social History Smoking/Tobacco Use Status: Current every day Tobacco Type: cigarettes Smoking risk assessment performed?: Yes Alcohol Intake: current Alcohol Intake frequency: a few times a week Drug use: Daily Substance use type: marijuana Housing: house Do you feel safe at home: Yes Do you feel safe in your relationship?: Yes Exam Narrative Exam Narrative: Const: well appearing, anxious appearing HEENT: normocephalic, atraumatic; MMM Lungs: CTA, no wheezing or rales Heart: RRR Abd: soft, NT/ND Ext: well perfused Neuro: non-focal Skin: no rashes Course 42 yo male with hx anxiety, presents with c/o numb/tingling, including tingling in his chest and arm. Will check ekg, labs, ativan for his anxiety, and will monitor. Reevaluation(s) Initial Evaluation: 1427 - pt feeling better after ativan, says he also did some breathing exercises which have helped. His work up is without acute issues, and sx's most consistent with a panic attack. I discussed repeat troponin with pt, although I do not really think he needs one, sx's have been going on several hours prior, and HEART score of 1 (smoking). He is comfortable with dc home, will return for any return of/or worsening sx's. Vital Signs Vital signs: Vital Signs Pulse 80 02/20/23 13:22 Respiratory Rate 14 02/20/23 13:22 Blood Pressure 153/98 H 02/20/23 13:22 Pulse Oximetry 100 02/20/23 13:22 Pulse 80 02/20/23 13:22 Respiratory Rate 14 02/20/23 13:22 Blood Pressure 153/98 H 02/20/23 13:22 Blood Pressure Position Supine 02/20/23 13:22 Pulse Oximetry 100 02/20/23 13:22 Oxygen Delivery Method Room Air 02/20/23 13:22 Oxygen Flow Rate 0 02/20/23 13:22
[2023-02-20 13:57] LABS: Abs Immature Grans 0.01 10^3/uL (0.0-0.06); Absolute Basophil Count 0.04 10^3/uL (0.0-0.2); Absolute Eosinophil Count 0.25 10^3/uL (0.0-0.7); Absolute Lymphocyte Count 2.83 10^3/uL (1.2-3.4); Absolute Monocyte Count 0.61 10^3/uL (0.1-0.8); Absolute Neutrophil Count 4.42 10^3/uL (1.2-6.7); Basophils % 0.5; Eosinophils % 3.1; Immature Grans % 0.1; Lymphocytes % 34.7; MCH 30.8 pg (27.0-33.0); MCHC 35.7 % (32.0-36.0); MCV 86 fL (80-95); MPV 8.9 fL (8.0-11.0); Monocytes % 7.5; Neutrophils % 54.1; Platelet Count 291 10^3/uL (130-400); RBC 4.87 10^6/uL (4.36-5.78); RDW 12.4 % (11.8-14.1); RDW-SD 39.3 fL; WBC 8.16 10^3/uL (4.4-10.8)
[2023-02-20] MEDS: LORazepam 2 MG/ML VIAL 1 MG IVP (14:00)
[2023-02-20] MEDS: Normal Saline 1,000 ML 1000 ML IV (14:00)
[2023-02-20 14:19] LABS: ALT 83 U/L (16-63); AST 25 U/L (15-37); Albumin 4.2 g/dL (3.4-5.0); Alkaline Phosphatase 78 U/L (46-116); Anion Gap 13.1 mmol/L (3-11); BUN 13 mg/dL (7-18); Bilirubin, Total 0.5 mg/dL (0.2-1.0); CO2 21.9 mmol/L (21.0-32.0); Calcium 9.1 mg/dL (8.5-10.1); Chloride 106 mmol/L (98-107); Estimated GFR 95.77 (mL/min/1.73m2); Glucose 104 mg/dL (74-106); Lipase 57 U/L (16-77); Potassium 3.5 mmol/L (3.5-5.1); Sodium 141 mmol/L (136-145); Total Protein 7.7 g/dL (6.4-8.2); Troponin I < 50 ng/L (<or=60)
== END 2023-02-20 14:52 | disposition home or self-care (01) ==
PROVIDERS: Emergency Provider Emergency Medicine; PCP Nurse Practitioner Family
DX: R07.9 Chest pain, unspecified (principal); R42 Dizziness and giddiness; F41.0 Panic disorder [episodic paroxysmal anxiety]; F41.9 Anxiety disorder, unspecified
CPT/HCPCS: 80053; 83690; 93005; 96361; 96374; 99284; 71045; 84484; 85025; 93010; J2060

== ENCOUNTER 2023-04-02 19:54 | Outpatient (REF) | payer OTHER, SELFPAY ==
[2023-04-02 20:07] LABS: ALT 53 U/L (16-63); AST 27 U/L (15-37); Calculated LDL 143 mg/dL (<100); Cholesterol 197 mg/dL (<200); HDL Cholesterol 37 mg/dL (40-60); Triglyceride 86 mg/dL (<150)
[2023-04-06 12:19] LABS: Lyme Ab w Rflx to Lyme Confirm Negative (Negative)
[2023-04-07 01:05] LABS: Anaplasma phagocytophilum Negative (Negative); B. miyamotoi PCR Negative (Negative); Babesia divergens/MO-1 Negative (Negative); Babesia duncani Negative (Negative); Babesia microti Negative (Negative); Ehrlichia chaffeensis Negative (Negative); Ehrlichia ewingii/canis Negative (Negative); Ehrlichia muris eauclairensis Negative (Negative)
== END 2023-04-02 19:55 | disposition home or self-care (01) ==
LOC: NCHCN 19:54
PROVIDERS: PCP Nurse Practitioner Family; Visit Provider Nurse Practitioner Family
DX: F10.10 Alcohol abuse, uncomplicated (principal); E78.5 Hyperlipidemia, unspecified; G89.29 Other chronic pain; R53.83 Other fatigue
CPT/HCPCS: 80061; 87798; 84450; 84460; 86618

== ENCOUNTER 2023-06-26 17:23 | Emergency (ER) | payer OTHER, SELFPAY ==
[2023-06-26 17:29] VITALS: BP 161/91; PULSE 120; RESP 16; TEMP 37.2; O2SAT 99
--- NOTE | 2023-06-26 17:30 | DI.RAD_ITS ---
Exam(s) XR TIB/FIB RT EXAM: XR TIB/FIB RT CLINICAL HISTORY: swelling, pain. TECHNIQUE: 2D digital imaging was performed. COMPARISON: No exams were available for comparison FINDINGS: Two views. No evidence of acute fracture. No radiopaque foreign body. There is an osteophytic dens ity anterior to the tibia tubercle measuring 1.9 in by 0.7 cm. There is some soft tissue swelling an terior to this osseous structure. This appears larger than a typical sesamoid within the distal wayne llar tendon. Possible remnant of prior Trini Schlatter's. IMPRESSION: Anterior tibial tubercle findings as above. Correlation with site of tenderness is recommended. Rem ainder of the tibia-fibula appear un remarkable. DATA REPOSITORY: RADIATION DOSE DELIVERED:
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
[2023-06-26 18:00] LABS: Abs Immature Grans 0.08 10^3/uL (0.0-0.06); Absolute Eosinophil Count 0.21 10^3/uL (0.0-0.7); Basophils % 0.4; HGB 14.7 g/dL (13.5-17.5); Immature Grans % 0.4; Lactate 1.7 mmol/L (0.6-1.4); Lymphocytes % 8.8; MCH 30.2 pg (27.0-33.0); MCV 86 fL (80-95); MPV 8.7 fL (8.0-11.0); Monocytes % 6.4; Platelet Count 310 10^3/uL (130-400); RBC 4.87 10^6/uL (4.36-5.78); RDW 12.4 % (11.8-14.1); RDW-SD 39.3 fL; WBC 21.25 10^3/uL (4.4-10.8)
[2023-06-26 18:01] LABS: Absolute Basophil Count 0.09 10^3/uL (0.0-0.2); Absolute Lymphocyte Count 1.87 10^3/uL (1.2-3.4); Absolute Monocyte Count 1.36 10^3/uL (0.1-0.8); Absolute Neutrophil Count 17.64 10^3/uL (1.2-6.7)
[2023-06-26 18:03] VITALS: BP 129/79; PULSE 96; RESP 18; O2SAT 99
[2023-06-26] MEDS: cefTRIAXone 1 GM/50 ML BAG IVPB (18:25)
[2023-06-26] MEDS: Normal Saline 1,000 ML 1000 ML IV (18:25)
[2023-06-26 18:34] LABS: ALT 96 U/L (16-63); AST 90 U/L (15-37); Albumin 4.1 g/dL (3.4-5.0); Alkaline Phosphatase 92 U/L (46-116); Anion Gap 9.8 mmol/L (3-11); BUN 15 mg/dL (7-18); Bilirubin, Total 0.4 mg/dL (0.2-1.0); CO2 22.2 mmol/L (21.0-32.0); Calcium 9.4 mg/dL (8.5-10.1); Chloride 104 mmol/L (98-107); Estimated GFR 95.77 (mL/min/1.73m2); Glucose 111 mg/dL (74-106); Potassium 4.4 mmol/L (3.5-5.1); Sodium 136 mmol/L (136-145); Total Protein 7.4 g/dL (6.4-8.2)
[2023-06-26] MEDS: Cephalexin 500 MG CAP PO (18:57)
[2023-06-26] MEDS: Cephalexin 500 MG CAP, 2 CAPS/BTL PO (18:57)
[2023-06-26 19:04] VITALS: BP 142/85; PULSE 95; RESP 16; TEMP 37; O2SAT 98
--- NOTE | 2023-06-27 09:17 | NUR.NOTE ---
Addendum entered by Noemí Garcia 06/27/23 15:54: Coco Davis made out another order that has been faxed to [facility]. WOOD venous doppler/leg swelling, leg pain, to be done ThursdayJun 29 and seen in ED after for results. Original Note: Patient called asking about an US for today. I spoke with Coco Davis and the US is to be Thursday. I called the patient and he is aware that he is to call 7am Thursday and schedule the US. He has the phone number. He was also asking about blood results and Kurt Dallas who spoke with the patient regarding this. Nursing Note:
--- NOTE | 2023-06-27 09:25 | W.ED.FU ---
Follow Up Plan: Patient called the emergency department requesting information about his pending blood work. I assume that patient was speaking about his blood cultures that are pending. Informed patient that we did not have any new results compared to what was already given to him yesterday. Did ask him about his symptoms and he stated that through the evening he still ran a fever. Informed patient that if he feels significantly worse or has additional concerns that he should come back to the emergency department for reassessment. Patient has been taking antibiotics as prescribed. After discussion patient stated that he is going to wait at home and see if he starts feeling any better but did state clear understanding of recommendation to return for any new or significant worsening of symptoms. At least per discussion patient did not seem to be in any extreme distress and was able to calmly and clearly communicate.
== END 2023-06-26 19:09 | disposition home or self-care (01) ==
PROVIDERS: Emergency Provider Registered Nurse Emergency; PCP Nurse Practitioner Family
DX: L03.116 Cellulitis of left lower limb (principal); R50.9 Fever, unspecified; F17.210 Nicotine dependence, cigarettes, uncomplicated
CPT/HCPCS: 36415; 80053; 87040; 96361; 96365; 99283; 73590; 73610; 83605; 83735; 85025; J0696

== ENCOUNTER 2023-06-27 18:20 | Inpatient (IN) | payer OTHER, SELFPAY ==
[2023-06-27] VITALS (23 sets, daily range): BP systolic 109–149; BP diastolic 54–84; PULSE 56–113; RESP 16–20; TEMP 37.2–38.6; O2SAT 93–98
--- NOTE | 2023-06-27 18:39 | ED.GENADUL_ITS ---
Discharge Plan Disposition Patient Disposition: Admit to [facility] Condition: Stable Discharge Details Clinical Impression: Cellulitis of leg, right Primary Care Provider: Dayanna Mckeon ED Provider: Coco Davis Home Meds and New Rx's Prescriptions: No Action mirtazapine 15 MG tablet 15 mg PO HS lorazepam 1 MG tablet 1 mg PO PRN PRN albuterol sulfate [ProAir HFA] 200 PUFF HFA aerosol inhaler 2 puff Inhalation PRN PRN ibuprofen 600 mg Tablet 600 mg PO Q4H PRN PRN mirtazapine 7.5 mg tablet 7.5 mg PO DAILY Patient Comments: TAKE 1 TABLET BY MOUTH EVERY NIGHT AT BEDTIME WITH 15MG TABLET FOR A TOTAL DOSE OF 22.5MG acetylcysteine 600 mg capsule 1,200 mg PO DAILY Patient Comments: TAKE 2 CAPSULES BY MOUTH EVERY MORNING WITH 2 ADDITIONAL CAPSULES IN THE AFTERNOON / EARLY EVENING NEEDED FOR MOOD cephalexin 500 mg tablet 500 mg PO BID 10 Days Qty: 20 0RF Medical Decision Making 42-year-old male presents for the second day in 2 days with chief complaint of right lower leg cellulitis. Patient was seen in the ER yesterday by myself and was prescribed cephalexin 500 mg twice daily which she has been taking as prescribed. He reports worsening fever fever of 103 last night, diaphoresis and chills. He states that he is just felt worse since leaving here. Yesterday he did have a 21,000 white count. X-rays were performed which showed no foreign body. Now his wound in his right lower extremity is draining. Labs read ordered including CBC CMP, lactate. Cefazolin IV ordered. I did mention admission with the patient if his labs are any worse he is not opposed to the idea. 2045: Spoke with Dr. Tavera who requests a CT scan of his extremity with contrast to rule out abscess, CT ordered. 2145: CT shows soft tissue edema, no abscess, or osseous abnormality.Hospitalist paged. 2153: Spoke with Dr. Tavera who agrees to accept patient for admission, he recommends Vancomycin which was placed. Discussed plan of care with patient and family who verbalized understanding. He is requesting some Nicorette gum which order was placed. Awaiting bed assignment and transportation up to the floor. Vital signs are stable he is alert and oriented x4. He continues to remain febrile despite Toradol. Will be admitted for cellulitis of the right lower extremity. Imaging Data Radiologic Study: Imaging: CT Scan Radiologist's impression: TECHNIQUE: Imaging protocol: CT of the right lower extremity with intravenous contrast was performed. Exam focused on the lower leg. Contrast material: 350; Contrast volume: 100 ml; Contrast route: INTRAVENOUS (IV); COMPARISON: CR XR TIB/FIB RT 06/26/2023 6:14 PM FINDINGS: Bones/joints: Osseous alignment is normal. No acute fracture. No periostitis or other findings concerning for osteomyelitis. Soft tissues: Significant pretibial soft tissue edema noted in the right lower leg. No well-defined loculated fluid collection. No intermuscular/fascial edema IMPRESSION: Significant focal pretibial soft tissue edema in the right lower lobe. No well-defined abscess. No osseous abnormality. Thank you for allowing us to participate in the care of your patient. Dictated and Authenticated by: Duy Tran MD 06/27/2023 9:45 PM Eastern Time ([place] & [place]) Lab Data Lab results reviewed: Yes I reviewed the patient's lab results. Labs: 06/27/23 18:34 Leg - Right Lower Wound Culture - Pending 06/27/23 18:34 Leg - Right Lower Gram Stain - Final Laboratory Tests Range/Units 06/27/23 06/27/23 18:44 19:10 WBC (4.4-10.8) 10^3/uL 20.21 H RBC (4.36-5.78) 10^6/uL 4.50 Hgb (13.5-17.5) g/dL 13.7 Hct (40.0-50.0) % 38.9 L MCV (80-95) fL 86 MCH (27.0-33.0) pg 30.4 MCHC (32.0-36.0) % 35.2 RDW (11.8-14.1) % 12.7 Plt Count (130-400) 10^3/uL 255 MPV (8.0-11.0) fL 8.7 Immature Gran % 0.4 Neutrophils % 83.0 Lymphocytes % 8.5 Monocytes % 7.4 Eosinophils % 0.4 Basophils % 0.3 Nucleated RBC % (0.0-0.3) % 0.0 Absolute Neutrophils (1.2-6.7) 10^3/uL 16.77 H Absolute Lymphocytes (1.2-3.4) 10^3/uL 1.72 Absolute Monocytes (0.1-0.8) 10^3/uL 1.50 H Absolute Eosinophils (0.0-0.7) 10^3/uL 0.08 Absolute Basophils (0.0-0.2) 10^3/uL 0.06 VBG Lactate (0.6-1.4) mmol/L 0.8 Sodium (136-145) mmol/L 135 L Potassium (3.5-5.1) mmol/L 3.6 Chloride (98-107) mmol/L 104 Carbon Dioxide (21.0-32.0) mmol/L 21.9 Anion Gap (3-11) mmol/L 9.1 BUN (7-18) mg/dL 10 Creatinine (0.70-1.30) mg/dL 1.1 Est GFR (CKD-EPI 2020) (mL/min/1.73m2) 85.42 Glucose (74-106) mg/dL 120 H Calcium (8.5-10.1) mg/dL 9.2 Magnesium (1.8-2.4) mg/dL 2.1 Total Bilirubin (0.2-1.0) mg/dL 0.9 AST (15-37) U/L 55 H ALT (16-63) U/L 124 H Alkaline Phosphatase (46-116) U/L 102 Total Protein (6.4-8.2) g/dL 7.5 Albumin (3.4-5.0) g/dL 3.6 COVID-19 Source Nasal/Nares SARS-CoV-2 (PCR) (Negative) Negative HPI General Mode of arrival: ambulatory . Date/Time Provider Initiated Documentation: 06/27/23 18:28 . Limitations to Documentation: no limitations . Information obtained by: patient, family, RN notes reviewed and old records reviewed . HPI Narrative: 42-year-old male presents for the second day in 2 days with chief complaint of right lower leg cellulitis. Patient was seen in the ER yesterday by myself and was prescribed cephalexin 500 mg twice daily which she has been taking as prescribed. He reports worsening fever fever of 103 last night, diaphoresis and chills. He states that he is just felt worse since leaving here. Yesterday he did have a 21,000 white count. X-rays were performed which showed no foreign body. Now his wound in his right lower extremity is draining. Related Data Home Medications Medication Instructions Recorded Confirmed albuterol sulfate 90 mcg/actuation 2 puff inhalation PRN PRN 12/04/15 06/27/23 aerosol inhaler (ProAir HFA) lorazepam 1 mg tablet 1 mg PO PRN PRN 12/04/15 06/27/23 mirtazapine 15 mg tablet 15 mg PO HS 12/04/15 06/27/23 ibuprofen 600 mg tablet 600 mg PO Q4H PRN PRN 10/11/18 06/27/23 acetylcysteine 600 mg capsule 1,200 mg PO DAILY 06/26/23 06/27/23 cephalexin 500 mg tablet 500 mg PO BID 10 days #20 tabs 06/26/23 06/27/23 mirtazapine 7.5 mg tablet 7.5 mg PO DAILY 06/26/23 06/27/23 Previous Rx's Medication Instructions Recorded cephalexin 500 mg tablet 500 mg PO BID 10 days #20 tabs 06/26/23 Allergies Allergy/AdvReac Type Severity Reaction Status Date / Time bupropion [From Wellbutrin] AdvReac worsens Verified 06/27/23 19:29 anxiety General Stated Complaint: Cellulitis WAYNE: 3 Review of Systems Constitutional Constitutional: Reports as per HPI, Reports chills, Reports difficulty sleeping, Reports excessive sweating, Reports fever(s) and Reports lethargy Integumentary/Breasts Skin/Breast: Reports as per HPI Endocrine Endocrine: Reports excessive sweating PFSH All Active Problems (Updated 06/27/23 @ 21:56 by Coco Davis NP) Cellulitis of leg, right (Acute) Social History Smoking/Tobacco Use Status: Current every day Tobacco Type: cigarettes Smoking risk assessment performed?: Yes Alcohol Intake: former Drug use: Daily Substance use type: marijuana Housing: house Do you feel safe at home: Yes Do you feel safe in your relationship?: Yes Exam Extrem Ankle/foot/toe images: 2 1. Erythema, induration and central scabbing, surrounding and the scab is flaking of the skin. Course Vital Signs Vital signs: Vital Signs Temperature 38.4 C H 06/27/23 18:23 Pulse 113 H 06/27/23 18:23 Respiratory Rate 18 06/27/23 18:23 Blood Pressure 111/77 06/27/23 18:23 Pulse Oximetry 97 06/27/23 18:23 Temperature 38.4 C H 06/27/23 18:23 Temperature Source Oral 06/27/23 18:23 Pulse 113 H 06/27/23 18:23 Respiratory Rate 18 06/27/23 18:23 Respiratory Effort Normal 06/27/23 18:25 Blood Pressure 111/77 06/27/23 18:23 Blood Pressure Position Sitting 06/27/23 18:23 Pulse Oximetry 97 06/27/23 18:23 Oxygen Delivery Method Room Air 06/27/23 18:23 Oxygen Flow Rate 0 06/27/23 18:23 Pain Level 5 06/27/23 18:32 Lab/Test Results Lab/Test Results: 06/27/23 18:36 Leg - Right Lower Wound Culture - Pending 06/27/23 18:36 Leg - Right Lower Gram Stain - Pending
[2023-06-27 18:49] LABS: Abs Immature Grans 0.09 10^3/uL (0.0-0.06); Absolute Basophil Count 0.06 10^3/uL (0.0-0.2); Absolute Eosinophil Count 0.08 10^3/uL (0.0-0.7); Absolute Lymphocyte Count 1.72 10^3/uL (1.2-3.4); Basophils % 0.3; Eosinophils % 0.4; HCT 38.9 % (40.0-50.0); HGB 13.7 g/dL (13.5-17.5); Immature Grans % 0.4; Lactate 0.8 mmol/L (0.6-1.4); Lymphocytes % 8.5; MCH 30.4 pg (27.0-33.0); MCHC 35.2 % (32.0-36.0); MCV 86 fL (80-95); MPV 8.7 fL (8.0-11.0); Monocytes % 7.4; Platelet Count 255 10^3/uL (130-400); RDW 12.7 % (11.8-14.1); WBC 20.21 10^3/uL (4.4-10.8)
[2023-06-27 18:52] LABS: Absolute Neutrophil Count 16.77 10^3/uL (1.2-6.7)
[2023-06-27] MEDS: Ketorolac 30 MG/ML VIAL IVP (18:53)
[2023-06-27] MEDS: ceFAZolin 1 GM/50 ML BAG IVPB (18:53)
[2023-06-27 19:08] LABS: ALT 124 U/L (16-63); AST 55 U/L (15-37); Albumin 3.6 g/dL (3.4-5.0); Alkaline Phosphatase 102 U/L (46-116); Anion Gap 9.1 mmol/L (3-11); BUN 10 mg/dL (7-18); Bilirubin, Total 0.9 mg/dL (0.2-1.0); CO2 21.9 mmol/L (21.0-32.0); CREATININE 1.1 mg/dL (0.70-1.30); Calcium 9.2 mg/dL (8.5-10.1); Chloride 104 mmol/L (98-107); Estimated GFR 85.42 (mL/min/1.73m2); Glucose 120 mg/dL (74-106); Magnesium 2.1 mg/dL (1.8-2.4); Potassium 3.6 mmol/L (3.5-5.1); Sodium 135 mmol/L (136-145); Total Protein 7.5 g/dL (6.4-8.2)
[2023-06-27 19:15] LABS: Source Nasal/Nares
[2023-06-27] MEDS: Normal Saline 1,000 ML 1000 ML IV (19:28)
[2023-06-27 19:45] LABS: COVID-19 PCR Negative (Negative)
--- NOTE | 2023-06-27 20:30 | DI.CT_ITS ---
Exam(s) CT LOWER EXTREMITY RT W EXAM: CT LOWER EXTREMITY RT W CLINICAL HISTORY: Cellulitis RLE. TECHNIQUE: Imaging Protocol: Axial computed tomography images with coronal and sagittal reformatted images were created and reviewed. CONTRAST MATERIAL: Intravenous: Omnipaque 350 Contrast volume:structured data in ml Contrast route:I V - Oral: yes / no COMPARISON: CR XR TIB/FIB RT from 06/26/2023 FINDINGS: Osseous: No fractures nor osseous lesions evident. No erosions. Soft tissues: No evidence of knee joint effusion. There is edema in the lower right leg which is mos t prominent in the pretibial soft tissues over the lower 3rd of the tibia. There does appear to be s ome fluid in the anterior subcutaneous tissues over a cephalocaudal distance of approximately 8 cm by 1.3 cm AP by 2.7 cm wide. There is no ring enhancement but cannot exclude developing focal collecti on such as abscess at this level. There is no gas in the soft tissues. No radiopaque foreign body. No evidence of osteomyelitis. No intermuscular fluid collection.. No obvious tenosynovitis. IMPRESSION: Significant pretibial soft tissue edema in the right lower leg with some confluent appearing fluid ov er a cephalocaudal length of approximately 8 cm. Focalized edema but suspicious for possible develop ing abscess in this region. Recommend follow-up ultrasound or MRI for added specificity. There is n o radiopaque foreign body. No air-gas in soft tissues. No evidence of osteomyelitis. RADIATION DOSE DELIVERED: Total DLP DATA REPOSITORY: All CT scans at this facility are submitted to the National Radiology Data Registry (NRDR) Dose Index Registry (DIR) with the [employer] ([employer]). RADIATION OPTIMIZATION: All CT scans at this facility use at least one of these dose optimization te chniques: automated exposure control; mA and/or kV adjustment per patient size (includes targeted exa ms where dose is matched to clinical indication); or iterative reconstruction.
[2023-06-27] MEDS: Ibuprofen 800 MG TAB PO (20:58)
[2023-06-27] MEDS: Normal Saline Flush 10 ML SYR IVP (20:59)
[2023-06-27] MEDS: Normal Saline - Diluent 50 ML VIAL IJ (21:00)
[2023-06-27] MEDS: Omnipaque 350 MG/ML 100 ML BTL IJ (21:01)
--- NOTE | 2023-06-27 21:45 | DI.VRAD_ITS ---
PROCEDURE INFORMATION: Exam: CT Right Lower Extremity With Contrast; Lower Leg Exam date and time: 06/27/2023 9:01 PM Age: 42 years old Clinical indication: Cellulitis; Lower leg; Right TECHNIQUE: Imaging protocol: CT of the right lower extremity with intravenous contrast was performed. Exam focused on the lower leg. Contrast material: 350; Contrast volume: 100 ml; Contrast route: INTRAVENOUS (IV); COMPARISON: CR XR TIB/FIB RT 06/26/2023 6:14 PM FINDINGS: Bones/joints: Osseous alignment is normal. No acute fracture. No periostitis or other findings concerning for osteomyelitis. Soft tissues: Significant pretibial soft tissue edema noted in the right lower leg. No well-defined loculated fluid collection. No intermuscular/fascial edema IMPRESSION: Significant focal pretibial soft tissue edema in the right lower lobe. No well-defined abscess. No osseous abnormality. Dictated and Authenticated by: Duy Tran MD. Ordering:ALICIA Sepulveda MD
[2023-06-27] MEDS: Nicotine 4 MG GUM CH (22:28)
[2023-06-27] MEDS: VANCOMYCIN 1,000 MG in Normal Saline 250 ML 166.6666 MG IVPB (22:29)
--- NOTE | 2023-06-27 22:41 | W.PM.HP.N ---
Date of service: 06/27/23 Time of Service: 22:42 Assessment and Plan Assessment and plan (1) Cellulitis of leg, right: Start date: 06/27/23 Status: Acute Assessment and plan: This is a 42-year-old gentleman without long-term immunosuppression who presents with a wound of his right leg 2 weeks ago now rapidly changing with pain and erythema without evidence of abscess or fasciitis and not responding to initial outpatient treatment with Keflex. He will be admitted for IV vancomycin with blood cultures will be followed up with patient having significant fever upon presentation. He is responding to therapy. Wound care will be continued. Surgical consultation if evidence of abscess seen with this appearing to be a staph infection. Patient is a full code. (2) Leukocytosis (leucocytosis): Start date: 06/27/23 Status: Acute Assessment and plan: Associated with acute probable staph infection and right leg wound. Trend as we treat the acute infection. Qualifiers: Leukocytosis type: other Qualified Code(s): D72.828 - Other elevated white blood cell count History of Present Illness History of Present Illness Chief Complaint: Pain in right leg over wound with fever Narrative: This is a 42-year-old male patient who had a abrasion and wound over his right leg anteriorly about 2 weeks prior to presentation. He was seen by his PCP and wound appear to be healing well just days prior to presentation to the ED. 2 days prior to admission the patient had increased pain in his right anterior leg over the ness and his wound appeared to be swelling and tight with redness and increased warmth to touch. He was seen in the ED with imaging performed and was initiated on Keflex. When returning home today with increasing pain and fever persisting. Return back to the ED for evaluation was found to have extreme leukocytosis with the wound appearing to have progressed though there is no drainage. CT scan did not show any abscess seen or fasciitis. There is no evidence of bone involvement by that image. He was initiated on vancomycin and was slowly improving at the time I saw the patient 2 hours after presentation. He continued to have slight sweats but less high fever. Patient has no history of complicated infections or diabetes. He is a full code. Review of Systems Narrative: 13 point review of systems otherwise unrevealing or stable. Patient is a smoker without complications. PFSH All Active Problems (Updated 06/27/23 @ 22:45 by Dennis Marino) Leukocytosis (leucocytosis) (Acute) Cellulitis of leg, right (Acute) Social History Smoking/Tobacco Use Status: Current every day Tobacco Type: cigarettes Smoking risk assessment performed?: Yes Alcohol Intake: former Drug use: Daily Substance use type: marijuana Housing: house Do you feel safe at home: Yes Do you feel safe in your relationship?: Yes Meds Allergies and Home Medications Allergies Allergy/AdvReac Type Severity Reaction Status Date / Time bupropion [From Wellbutrin] AdvReac worsens Verified 06/27/23 19:29 anxiety Home Medications Medication Instructions Recorded Confirmed Type albuterol sulfate 90 mcg/actuation 2 puff inhalation PRN PRN 12/04/15 06/27/23 History aerosol inhaler (ProAir HFA) lorazepam 1 mg tablet 1 mg PO PRN PRN 12/04/15 06/27/23 History mirtazapine 15 mg tablet 15 mg PO HS 12/04/15 06/27/23 History ibuprofen 600 mg tablet 600 mg PO Q4H PRN PRN 10/11/18 06/27/23 History acetylcysteine 600 mg capsule 1,200 mg PO DAILY 06/26/23 06/27/23 History cephalexin 500 mg tablet 500 mg PO BID 10 days #20 tabs 06/26/23 06/27/23 Rx mirtazapine 7.5 mg tablet 7.5 mg PO DAILY 06/26/23 06/27/23 History Exam Narrative Exam Narrative: General: Patient is mesomorphic, sitting in bed in no acute distress and alert and oriented x3. HEENT: Normocephalic, eyes with pupils equal and reactive to light symmetrically, extraocular movement intact and sclera anicteric. Oropharynx with moist mucosa and good dentition. Neck: Supple without JVD. Back: Normal posture without CVA tenderness. Lungs: Slight decreased aeration on the right otherwise normal heart rate with no focalizing rales or rhonchi. No expiratory wheeze. Heart: Regular rate and rhythm with no murmurs or gallops appreciated. Abdomen: Normal contour, soft nontender to palpation with no palpable hepatosplenomegaly. Genitalia/rectal: Exam deferred. Extremities: No clubbing, cyanosis or pitting edema. Right leg is swollen with erythema over most of the anterior leg where there is a deep scabbed over abrasion without drainage or fluctuance to palpation. Increased warmth to touch. The erythema has been outlined with a marker. Peripheral pulses are intact. Skin: Wound over right leg otherwise normal color, warm and moist. Neuro: Cranial nerves II through XII gross intact, no focalizing motor deficits. No tremor. Psych: Normal affect and mood. No normal thought processes. Remote and recent memory grossly intact. Results Imaging Imaging Studies: Exam: CT Right Lower Extremity With Contrast; Lower Leg Exam date and time: 06/27/2023 9:01 PM Age: 42 years old Clinical indication: Cellulitis; Lower leg; Right TECHNIQUE: Imaging protocol: CT of the right lower extremity with intravenous contrast was performed. Exam focused on the lower leg. Contrast material: 350; Contrast volume: 100 ml; Contrast route: INTRAVENOUS (IV); COMPARISON: CR XR TIB/FIB RT 06/26/2023 6:14 PM FINDINGS: Bones/joints: Osseous alignment is normal. No acute fracture. No periostitis or other findings concerning for osteomyelitis. Soft tissues: Significant pretibial soft tissue edema noted in the right lower leg. No well-defined loculated fluid collection. No intermuscular/fascial edema IMPRESSION: Significant focal pretibial soft tissue edema in the right lower leg. No well-defined abscess. No osseous abnormality. EXAM: XR TIB/FIB RT CLINICAL HISTORY: swelling, pain. TECHNIQUE: 2D digital imaging was performed. COMPARISON: No exams were available for comparison FINDINGS: Two views. No evidence of acute fracture. No radiopaque foreign body. There is an osteophytic density anterior to the tibia tubercle measuring 1.9 in by 0.7 cm. There is some soft tissue swelling anterior to this osseous structure. This appears larger than a typical sesamoid within the distal patellar tendon. 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 IMPRESSION: Anterior tibial tubercle findings as above. Correlation with site of tenderness is recommended. Remainder of the tibia-fibula appear un remarkable. Labs 06/27/23 18:44 06/27/23 18:44 Labs: Laboratory Results - last 24 hr 06/27/23 06/27/23 18:44 19:10 WBC 20.21 H RBC 4.50 Hgb 13.7 Hct 38.9 L MCV 86 MCH 30.4 MCHC 35.2 RDW 12.7 Plt Count 255 MPV 8.7 Immature Gran % 0.4 Neutrophils % 83.0 Lymphocytes % 8.5 Monocytes % 7.4 Eosinophils % 0.4 Basophils % 0.3 Nucleated RBC % 0.0 Absolute Neutrophils 16.77 H Absolute Lymphocytes 1.72 Absolute Monocytes 1.50 H Absolute Eosinophils 0.08 Absolute Basophils 0.06 VBG Lactate 0.8 Sodium 135 L Potassium 3.6 Chloride 104 Carbon Dioxide 21.9 Anion Gap 9.1 BUN 10 Creatinine 1.1 Est GFR (CKD-EPI 2020) 85.42 Glucose 120 H Calcium 9.2 Magnesium 2.1 Total Bilirubin 0.9 AST 55 H ALT 124 H Alkaline Phosphatase 102 Total Protein 7.5 Albumin 3.6 COVID-19 Source Nasal/Nares SARS-CoV-2 (PCR) Negative Last Vital Signs Temp 38.6 C H 06/27/23 20:58 Pulse 83 06/27/23 22:31 Resp 16 06/27/23 20:38 BP 125/84 06/27/23 22:31 Pulse Ox 95 06/27/23 22:30 Time Spent Time spent with Patient: 55-74 minutes Time was spent: preparing to see the patient(eg.review tests), obtaining and/or reviewing separately otained hiistory, ordering medications,tests, procedures, referring, communicating with other health team primary care physician and indepentently interpreting results
[2023-06-27] MEDS: Water,Injection,Sterile 10 ML VIAL (22:45)
[2023-06-27] MEDS: Mirtazapine 15 MG TAB PO (23:57)
[2023-06-27] MEDS: Mirtazapine 15 MG TAB 7.5 MG PO (23:57)
[2023-06-28] VITALS (9 sets, daily range): BP systolic 103–125; BP diastolic 65–79; PULSE 56–93; RESP 17–20; TEMP 36.9–38.6; O2SAT 95–100
[2023-06-28 08:05] LABS: HCT 37.8 % (40.0-50.0); HGB 12.9 g/dL (13.5-17.5); MCH 30.2 pg (27.0-33.0); MCHC 34.1 % (32.0-36.0); MCV 89 fL (80-95); MPV 9.6 fL (8.0-11.0); Platelet Count 262 10^3/uL (130-400); RBC 4.27 10^6/uL (4.36-5.78); RDW 13.2 % (11.8-14.1); RDW-SD 42.9 fL; WBC 19.58 10^3/uL (4.4-10.8)
[2023-06-28 08:23] LABS: ALT 96 U/L (16-63); AST 35 U/L (15-37); Alkaline Phosphatase 113 U/L (46-116); Anion Gap 8.6 mmol/L (3-11); BUN 10 mg/dL (7-18); Bilirubin, Total 0.6 mg/dL (0.2-1.0); CO2 21.4 mmol/L (21.0-32.0); Calcium 8.7 mg/dL (8.5-10.1); Chloride 108 mmol/L (98-107); Estimated GFR 95.77 (mL/min/1.73m2); Glucose 117 mg/dL (74-106); Potassium 3.8 mmol/L (3.5-5.1); Sodium 138 mmol/L (136-145)
[2023-06-28] MEDS: Acetylcysteine 600 MG CAP 1200 MG PO (08:46)
[2023-06-28] MEDS: Ibuprofen 600 MG TAB PO (08:52)
[2023-06-28] MEDS: VANCOMYCIN/WATER (PEG) 1.25 GM/250 ML BAG IVPB ×2 (10:08→21:11)
[2023-06-28] MEDS: Normal Saline Flush 10 ML SYR IVP (10:09)
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
--- NOTE | 2023-06-28 10:32 | NUR.NOTE ---
Nursing Note: Pt temp 38.5; admin Motrin (pt has concerns re Tylenol and liver; being managed by provider) and temp rechecked = 38.6. CC notified of no change in fever.
[2023-06-28 12:35] LABS: MRSA PCR Negative (Negative)
[2023-06-28] MEDS: Acetaminophen 325 MG TAB 650 MG PO ×2 (13:43→23:43)
--- NOTE | 2023-06-28 16:44 | INITIAL_ITS ---
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 He resides in [place] with friend. CURRENT FUNCTIONAL STATUS:: Lying in bed, notes anxiety, has not yet utilized nicotine replacement. Activity cart supplies provided. ADVANCE DIRECTIVES:: None on file. Has patient been provided with info about the portal/API?: No Did the patient sign up for the portal?: No CODE STATUS:: Full Code INSURANCE COVERAGE / FINANCIAL ISSUES:: [employer]BA PRIMARY CARE PHYSICIAN:: Dayanna Mckeon POTENTIAL DISCHARGE NEEDS:: Follow up appointments, culture sensitivities and abx treatment plan. PATIENT/FAMILY EDUCATION NEEDS:: Review discharge instructions, discuss Ask Me Three. ANTICIPATED BARRIERS TO DISCHARGE:: None identified. TRANSPORTATION:: Via private vehicle. PLAN:: Baldomero will return home when ready per MD. ABX course remains undetermined at this time, patient remains febrile. Anticipate he will transport himself home via private vehicle and follow up with community providers upon discharge. CM continues to follow. [facility] All Active Problems (Updated 06/28/23 @ 14:45 by Irena Elder APRN) Fever (Acute) Pain management (Acute) Tobacco abuse (Acute) On deep vein thrombosis (DVT) prophylaxis (Acute) Leukocytosis (leucocytosis) (Acute) Cellulitis of leg, right (Acute) Social History Smoking/Tobacco Use Status: Current every day Tobacco Type: cigarettes Smoking risk assessment performed?: Yes Alcohol Intake: former Drug use: Daily Substance use type: marijuana Housing: house Do you feel safe at home: Yes Do you feel safe in your relationship?: Yes
[2023-06-28] MEDS: Nicotine 4 MG GUM CH (21:17)
[2023-06-28] MEDS: Mirtazapine 15 MG TAB PO (21:18)
[2023-06-28] MEDS: Mirtazapine 15 MG TAB 7.5 MG PO (21:19)
[2023-06-28] MEDS: Mylanta Suspension 30 ML CUP PO (21:23)
[2023-06-28] MEDS: Enoxaparin 40 MG/0.4 ML SYR SC (23:29)
[2023-06-28] MEDS: LORazepam 0.5 MG TAB PO (23:29)
[2023-06-29 03:59] VITALS: BP 109/66; PULSE 80; RESP 20; TEMP 36.6; O2SAT 97
[2023-06-29 07:40] VITALS: BP 104/63; PULSE 78; RESP 14; TEMP 37.3; O2SAT 98
[2023-06-29] MEDS: LORazepam 0.5 MG TAB PO ×2 (08:19→23:02)
[2023-06-29] MEDS: Acetylcysteine 600 MG CAP 1200 MG PO (08:20)
[2023-06-29] MEDS: Nicotine 4 MG GUM CH (09:33)
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
[2023-06-29] MEDS: VANCOMYCIN/WATER (PEG) 1.25 GM/250 ML BAG IVPB (10:13)
[2023-06-29] MEDS: Normal Saline Flush 10 ML SYR IVP ×2 (10:14→12:04)
--- NOTE | 2023-06-29 10:36 | PDOC.CMPRO ---
Date of service: 06/29/23 Time of Service: 10:36 Care Management Progress Note Progress Note Text Progress Note Text: S/O: Baldomero was sitting up in bed when GE met with him. He had a friend, Sofia, visiting during the conversation. Baldomero expressed concern about his wound looking worse today than it was yesterday. CM provided this information to the provider, who will follow up with him. Per report, his antibiotic was changed today, and per provider he will likely require 2-3 more days of IV abx therapy, as he failed o/p oral antibiotics. CM will continue to follow. A: Baldomero is a 42 year old male admitted to [facility] on 06/27/23 for cellulitis right leg. P: Baldomero will return home when ready per MD. ABX course remains undetermined at this time, patient remains febrile. Anticipate he will transport himself home via private vehicle and follow up with community providers upon discharge. CM continues to follow.
[2023-06-29 10:52] LABS: Abs Immature Grans 0.07 10^3/uL (0.0-0.06); Absolute Basophil Count 0.05 10^3/uL (0.0-0.2); Absolute Eosinophil Count 0.53 10^3/uL (0.0-0.7); Absolute Lymphocyte Count 2.14 10^3/uL (1.2-3.4); Absolute Monocyte Count 1.23 10^3/uL (0.1-0.8); Basophils % 0.4; Eosinophils % 4.5; HGB 12.4 g/dL (13.5-17.5); Immature Grans % 0.6; Lymphocytes % 18.1; MCHC 34.4 % (32.0-36.0); MCV 87 fL (80-95); MPV 9.1 fL (8.0-11.0); Monocytes % 10.4; Platelet Count 255 10^3/uL (130-400); RBC 4.14 10^6/uL (4.36-5.78); RDW 13.2 % (11.8-14.1); RDW-SD 42.2 fL; WBC 11.85 10^3/uL (4.4-10.8)
[2023-06-29 10:54] LABS: Absolute Neutrophil Count 7.82 10^3/uL (1.2-6.7)
[2023-06-29 11:06] LABS: Anion Gap 9.3 mmol/L (3-11); BUN 12 mg/dL (7-18); CO2 23.7 mmol/L (21.0-32.0); CREATININE 0.8 mg/dL (0.70-1.30); Calcium 8.8 mg/dL (8.5-10.1); Chloride 105 mmol/L (98-107); Estimated GFR 112.61 (mL/min/1.73m2); Glucose 103 mg/dL (74-106); Potassium 3.6 mmol/L (3.5-5.1); Sodium 138 mmol/L (136-145)
[2023-06-29 11:26] VITALS: BP 100/60; PULSE 77; RESP 17; TEMP 37.2; O2SAT 96
[2023-06-29] MEDS: ceFAZolin 2 GM/50 ML BAG IVPB ×2 (12:04→19:37)
[2023-06-29 15:20] VITALS: BP 128/80; PULSE 79; RESP 18; TEMP 37.4; O2SAT 97
[2023-06-29 20:08] VITALS: BP 149/83; PULSE 78; RESP 18; TEMP 36.6; O2SAT 98
[2023-06-29] MEDS: Mirtazapine 15 MG TAB 22.5 MG PO (23:02)
[2023-06-29] MEDS: Ibuprofen 600 MG TAB PO (23:02)
[2023-06-29] MEDS: Enoxaparin 40 MG/0.4 ML SYR SC (23:02)
[2023-06-29] MEDS: Docusate Sodium 100 MG CAP PO (23:02)
[2023-06-29 23:06] VITALS: BP 117/69; PULSE 86; RESP 18; TEMP 37.7; O2SAT 96
[2023-06-29] MEDS: Calcium Carbonate *TUMS* 500 MG CHEW 1000 MG PO (23:25)
[2023-06-30] MEDS: ceFAZolin 2 GM/50 ML BAG IVPB ×2 (03:26→12:27)
[2023-06-30 03:30] VITALS: BP 100/62; PULSE 68; RESP 16; TEMP 36.6; O2SAT 95
[2023-06-30 06:48] LABS: Abs Immature Grans 0.08 10^3/uL (0.0-0.06); Absolute Basophil Count 0.05 10^3/uL (0.0-0.2); Absolute Eosinophil Count 0.55 10^3/uL (0.0-0.7); Absolute Lymphocyte Count 2.68 10^3/uL (1.2-3.4); Absolute Monocyte Count 0.95 10^3/uL (0.1-0.8); Absolute Neutrophil Count 4.62 10^3/uL (1.2-6.7); Basophils % 0.6; Eosinophils % 6.2; HCT 36.5 % (40.0-50.0); HGB 12.8 g/dL (13.5-17.5); Immature Grans % 0.9; MCH 30.8 pg (27.0-33.0); MCHC 35.1 % (32.0-36.0); MCV 88 fL (80-95); MPV 9.3 fL (8.0-11.0); Monocytes % 10.6; Neutrophils % 51.7; Platelet Count 285 10^3/uL (130-400); RBC 4.15 10^6/uL (4.36-5.78); RDW 13.4 % (11.8-14.1); RDW-SD 43.2 fL; WBC 8.93 10^3/uL (4.4-10.8)
[2023-06-30 07:07] LABS: ALT 73 U/L (16-63); AST 24 U/L (15-37); Albumin 2.9 g/dL (3.4-5.0); Alkaline Phosphatase 169 U/L (46-116); Anion Gap 10.4 mmol/L (3-11); BUN 13 mg/dL (7-18); Bilirubin, Direct 0.1 mg/dL (0.0-0.2); Bilirubin, Total 0.4 mg/dL (0.2-1.0); CO2 23.6 mmol/L (21.0-32.0); CREATININE 0.8 mg/dL (0.70-1.30); Calcium 9.2 mg/dL (8.5-10.1); Chloride 106 mmol/L (98-107); Estimated GFR 112.61 (mL/min/1.73m2); Glucose 109 mg/dL (74-106); Magnesium 2.6 mg/dL (1.8-2.4); Potassium 3.8 mmol/L (3.5-5.1); Sodium 140 mmol/L (136-145); Total Protein 7.3 g/dL (6.4-8.2)
[2023-06-30 10:07] VITALS: BP 120/66; PULSE 72; RESP 16; TEMP 36.1; O2SAT 98
[2023-06-30] MEDS: Acetylcysteine 600 MG CAP 1200 MG PO (10:09)
[2023-06-30] MEDS: Nicotine 4 MG GUM CH ×2 (10:24→22:11)
[2023-06-30 12:30] VITALS: BP 120/72; PULSE 74; RESP 19; TEMP 35.4; O2SAT 98
[2023-06-30] MEDS: Normal Saline 500 ML 100 ML IV (12:34)
[2023-06-30] MEDS: Normal Saline Flush 10 ML SYR IVP ×2 (12:35→13:34)
[2023-06-30 15:30] VITALS: BP 115/71; PULSE 76; RESP 20; TEMP 37.3; O2SAT 99
--- NOTE | 2023-06-30 15:46 | CMPROGNOTE_ITS ---
Date of service: 06/30/23 Time of Service: 15:49 Care Management Progress Note Progress Note Text Progress Note Text: S/O: Baldomero was lying in bed when CM met with him. He stated that he doesn't feel that his wound is improving; per report, he is clinically improving, and his WBC is now within normal limits. He stated that he still has a lot of pain with ambulation, and asked for a PT consult to assist him with modifications and exercises. CM discussed this with the provider, who will enter the PT consult. Baldomero expressed concern about being able to make it to his house closing, which is tomorrow afternoon at 4:30 in [place], [place]. GE informed the provider, who stated that he may not be medically cleared for discharge tomorrow. CM will continue to follow. A: Baldomero is a 42 year old male admitted to [facility] on 06/27/23 for cellulitis right leg. P: Baldomero will return home when ready per MD. ABX course remains undetermined at this time, patient remains febrile. Anticipate he will transport himself home via private vehicle and follow up with community providers upon discharge. CM continues to follow.
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
[2023-06-30] MEDS: Doxycycline Hyclate 100 MG CAP PO (17:47)
[2023-06-30] MEDS: Bacitracin 1 PACKET TP (18:35)
[2023-06-30 19:48] VITALS: BP 124/74; PULSE 87; RESP 19; TEMP 37.3; O2SAT 97
[2023-06-30] MEDS: Mirtazapine 15 MG TAB 22.5 MG PO (20:36)
[2023-06-30] MEDS: LORazepam 0.5 MG TAB PO (20:36)
[2023-06-30] MEDS: Ibuprofen 600 MG TAB PO (20:39)
[2023-06-30] MEDS: Enoxaparin 40 MG/0.4 ML SYR SC (22:11)
[2023-06-30 22:37] VITALS: BP 126/75; PULSE 73; RESP 18; TEMP 36.2; O2SAT 98
[2023-07-01] MEDS: Doxycycline Hyclate 100 MG CAP PO (06:11)
[2023-07-01 07:12] VITALS: BP 125/72; PULSE 67; RESP 18; TEMP 36.1; O2SAT 97
[2023-07-01 07:32] LABS: HCT 37.4 % (40.0-50.0); MCH 30.4 pg (27.0-33.0); MCHC 34.8 % (32.0-36.0); MCV 87 fL (80-95); Platelet Count 290 10^3/uL (130-400); RBC 4.28 10^6/uL (4.36-5.78); RDW 13.2 % (11.8-14.1); RDW-SD 42.5 fL; WBC 9.14 10^3/uL (4.4-10.8)
[2023-07-01 07:43] LABS: Anion Gap 9.1 mmol/L (3-11); BUN 15 mg/dL (7-18); CO2 24.9 mmol/L (21.0-32.0); CREATININE 0.9 mg/dL (0.70-1.30); Calcium 9.4 mg/dL (8.5-10.1); Chloride 104 mmol/L (98-107); Estimated GFR 108.68 (mL/min/1.73m2); Glucose 112 mg/dL (74-106); Potassium 4.2 mmol/L (3.5-5.1); Sodium 138 mmol/L (136-145)
[2023-07-01] MEDS: Acetylcysteine 600 MG CAP 1200 MG PO (07:46)
[2023-07-01] MEDS: LORazepam 0.5 MG TAB PO (07:46)
[2023-07-01] MEDS: Bacitracin 1 PACKET TP (07:46)
[2023-07-01 08:04] LABS: Absolute Basophil Count 0.18 10^3/uL (0.0-0.2); Absolute Eosinophil Count 0.46 10^3/uL (0.0-0.7); Absolute Lymphocyte Count 4.57 10^3/uL (1.2-3.4); Absolute Monocyte Count 0.73 10^3/uL (0.1-0.8); Diff Comment Manual Differential; RBC Morphology Normal
[2023-07-01] MEDS: Nicotine 4 MG GUM CH (08:50)
--- NOTE | 2023-07-01 10:25 | PT.INIE ---
PT Notes Visit Reasons: Cellulitis right leg Physical Therapy Inpatient Initial Evaluation Date: 07/01/2023 Referring Doctor: Irena Elder MD PT Orders: PT CONSULT: Limited ability Precautions: Fall. Standard. Activity as tolerated. Patient Profile/Admitting Diagnosis: Ross is a 42-year-old male admitted for management of cellulitis of right leg, leukocytosis, pain management, and fever. PMHX: All Active Problems (Updated 06/27/23 @ 22:45 by Dennis Marino) Leukocytosis (leucocytosis) (Acute) Cellulitis of leg, right (Acute) Social History/Home Situation: Independent with all aspects of ADLs prior to surgery. Equipment Owned/DME: None Subjective: Hoping to go home as soon as possible as he is closing a home he just bought in [place] at 4:30 PM today. Still feels some tightness and swelling in the R leg. Repetitive, undue pressure on the R LE still causes some drainage. wondering if the use of a cane can help with minimizing excessive pressure. Verbalized that he has already walked the whole loop before [facility] PT arrived. Objective: General Observation: Resting in bed. Mental Status: Alert and oriented as to person, place, time, and purpose. Able to pay attention, focus, and respond appropriately. Pain: 2-3/10 in the R leg and ankle Vital Signs: WNL as taken by nursing staff as of 7:12 AM today ROM: Right Lower Extremity: Hip flexion WFL. Hip abduction WFL. Knee flexion WFL. Ankle dorsiflexion WFL. Ankle plantarflexion WFL. Strength: Right Lower Extremity: Hip flexors 5/5. Hip abductors 5/5. Knee flexors 5/5. Knee extensors 5/5. Ankle dorsiflexors 4-/5. Ankle plantarflexors 4-/5. Bed Mobility/Transfers: Rolling independent Supine to sit independent Sit to supine independent Sit to stand independent Stand to sit independent Bed to reclining chair independent Reclining chair to bed independent Gait: Supervised level surface ambulation of 600 feet using no assistive device but with report of increased fatigue and pain in the right leg and ankle at 2?3/10. [place] much better with the use of a single-point cane at the end of activity. Provided minimal to moderate verbal cueing with SPC management and correct/safe gait pattern. Mild antalgia noted. Stairs: Facilitated safe and correct negotiation 6 x 4 inch steps and 4 x 6 inch steps while holding onto bilateral rails with step to gait pattern requiring only standby assist with report of increased pain and discomfort in the right leg and foot. Also trained with use of single-point cane during stair negotiation requiring moderate verbal cueing for movement sequence, limb advancement, and SPC management. Balance: Static Sitting: Normal Dynamic Sitting: Normal Static Standing: Good Dynamic Standing: Fair Special Tests: Mobility Limitations Standardized Measure [facility] AM-PAC 6 clicks Basic Mobility Inpatient Short Form: Raw Score: 24 CMS Score: 0% deficit Informed Consent/Education: Patient was instructed in purpose of PT consult and plan of care. Agreeable to proceed with established PT POC to achieve personal goals. Demosntrated good performance of HEP below. Print out given to patient. Access Code: [email or web address] URL: [email or web address] Date: 07/01/2023 Prepared by: Millicent Scott Exercises - Gastroc Stretch on Wall - 1 x daily - 7 x weekly - 1 sets - 10 reps - 5 hold - Seated Heel Toe Raises - 1 x daily - 7 x weekly - 1 sets - 10 reps - 5 hold - Standing Dorsiflexion Self-Mobilization on Step - 1 x daily - 7 x weekly - 1 sets - 10 reps - 5 hold - Supine Single Leg Ankle Pumps - 1 x daily - 7 x weekly - 1 sets - 10 reps - 5 hold ASSESSMENT: Patient managed independent level surface ambulation for limited distance but requested a single-point cane should pain and discomfort worsen at home. PT provided request device and ensured that training was done on level surfaces and on stairs with patient demonstrating good mastery after training. Patient presents with clinical signs and symptoms consistent with current/admitting diagnoses that have resulted to mobility limitations, gait instability, generalized weakness, and overall ADL decline as demonstrated by the following impairment level findings: 1. Decreased strength to L leg and ankle major muscle groups 2. Impaired sitting/standing balance 3. Impaired activity tolerance 5. Pain and discomfort in R leg and ankle with increased waling distance 6. Swelling in R leg Impairments are contributing to the following functional limitations: 1. Difficulty with ambulation 2. Increased completion time for mobility ADL performance Patient [place] 48710 low complexity based on the following: History: 42-year-old male with past medical history as indicated above Examination: Demonstrable impairment in strength, balance, and mobility level with underlying impairments and functional limitations as exhibited above Presentation: Stable Decision Makin low complexity Goals: N/A. PT evaluation only. Plan of Care/Treatment Plan: N/A. PT evaluation only. DISCHARGE RECOMMENDATIONS: [X] Home with no services. Home when medically cleared by hospitalist [] Home with services [] [] Home with outpatient PT [] [] SNF for continued rehabilitation [] [] [facility] [] [] SNF versus LTC based on ability to participate and progress [] TREATMENT CODE/TIME: 89792 x 28 minutes for 1 unit beginning at 9:28 AM. Thank you for the opportunity to participate in the care of this patient. Millicent Scott PT, DPT, CLT [facility] [place], [place]
--- NOTE | 2023-07-01 10:44 | DSE_ITS ---
Date of service: 07/01/23 Time of Service: 10:44 DS: Diagnosis Discharge Diagnosis (1) Cellulitis of leg, right: Status: Acute (2) Leukocytosis (leucocytosis): Status: Acute (3) Pain management: Status: Acute (4) Tobacco abuse: Status: Acute (5) Fever: Status: Acute Discharge Plan Disposition Patient Disposition: Home Condition: Stable Discharge Details Reason For Visit: Cellulitis right leg Admit Date/Time: 06/27/23 21:54 Admit Provider: Dennis Marino Attending Provider: Dennis Marino Primary Care Provider: Dayanna Mckeon Hospital Course Hospital Course: This is a 42-year-old male patient who had a abrasion and wound over his right leg anteriorly about 2 weeks prior to presentation. He was seen by his PCP and wound appear to be healing well just days prior to presentation to the ED. 2 days prior to admission the patient had increased pain in his right anterior leg over the ness and his wound appeared to be swelling and tight with redness and increased warmth to touch. He was seen in the ED with imaging performed and was initiated on Keflex. When returning home today with increasing pain and fever persisting. Return back to the ED for evaluation was found to have extreme leukocytosis with the wound appearing to have progressed though there is no drainage. CT scan did not show any abscess seen or fasciitis. He was given vancomycin and admitted to hospitalist services. His leukocytosis and symptoms improved. He was continued on doxycycline with normalizing white count and ongoing improvement. He will be referred to wound care for further wound management and is being discharged on one week of doxycycline. discharge discussed with DR Ricketts. Home Meds and New Rx's Prescriptions: New doxycycline hyclate 100 mg capsule 100 mg PO BID Qty: 14 0RF Continued mirtazapine 15 MG tablet 15 mg PO HS lorazepam 1 MG tablet 1 mg PO PRN PRN albuterol sulfate [ProAir HFA] 200 PUFF HFA aerosol inhaler 2 puff Inhalation PRN PRN ibuprofen 600 mg Tablet 600 mg PO Q4H PRN PRN mirtazapine 7.5 mg tablet 7.5 mg PO DAILY Patient Comments: TAKE 1 TABLET BY MOUTH EVERY NIGHT AT BEDTIME WITH 15MG TABLET FOR A TOTAL DOSE OF 22.5MG acetylcysteine 600 mg capsule 1,200 mg PO DAILY Patient Comments: TAKE 2 CAPSULES BY MOUTH EVERY MORNING WITH 2 ADDITIONAL CAPSULES IN THE AFTERNOON / EARLY EVENING NEEDED FOR MOOD Discontinued cephalexin 500 mg tablet 500 mg PO BID 10 Days Qty: 20 0RF Discharge Instructions Instructions: Cellulitis (DC) Additional Instructions: wound care: clean daily with warm soapy water, rinse completely, pat dry gently, apply bacitracin or antibiotic ointment and dry dressing. Until seen by wound care Stand Alone Forms: Nursing Discharge Form Referrals: Dayanna Mckeon [Primary Care Provider] - 07/13/23 2:30 pm () Reema Crisostomo [[facility] STAFF PHYSICIAN] - (wound care referral for right lower extremity wound) Activity:: Activity as Tolerated Equipment/Supplies:: No Equipment Needed Diet:: As Tolerated Discharge Orders Discharge Orders: Discharge Order (Routine); Ordered 07/01/23 Ordered By: Lanie Daniels Discharge Data Discharge Date/Time-TO BE ENTERED AT DEPARTURE: 07/01/23 12:26 DS: Summary Time Spent with Patient providing and/or coordinating discharge services: Less than 30 minutes Status at Discharge Functional status at discharge: independent ambulation Overall status at discharge: patient is progressing back to baseline Mental Status: mental status grossly normal Speech and Movement: speech and movement normal Mood: congruent mood and anxious mood Affect: normal affect Exam Narrative Exam Narrative: Nontoxic healthy appearing gentleman of stated age anxious affect Const General: no acute distress Nutritional Appearance: average body habitus Resp Effort & Inspection: normal respiratory effort Cardio Rate: regular rate Rhythm: regular rhythm Skin Lesions: lesion noted (Anterior left lower extremity dressing clean dry and intact no erythema ) Extrem General: no pedal edema Psych Mental Status: mental status grossly normal Speech and Movement: speech and movement normal Mood: congruent mood and anxious mood Affect: normal affect DS: Data Vitals/I&O Vitals and I&O: Vital Signs Temperature 36.1 C L 07/01/23 07:12 Temperature Source Tympanic 07/01/23 07:12 Pulse 67 07/01/23 07:12 Pulse Rhythm Regular 07/01/23 08:03 Respiratory Rate 18 07/01/23 07:12 Respiratory Effort Normal, Non-Labored 07/01/23 08:03 Respiratory Depth Normal 07/01/23 08:03 Respiratory Pattern Normal 07/01/23 08:03 Blood Pressure 125/72 07/01/23 07:12 Blood Pressure Mean 95 06/27/23 22:31 Blood Pressure Position Sitting 06/27/23 18:23 Pulse Oximetry 97 07/01/23 07:12 Oxygen Delivery Method Room Air 07/01/23 07:12 Oxygen Flow Rate 0 07/01/23 07:12 Pain Level 0 07/01/23 07:12 Comment Pt. denies pain at this time. 06/30/23 12:23 Intake & Output 06/30/23 06/30/23 07/01/23 11:59 23:59 11:59 Intake Total 840 / 1361.667 521.667 / 1361.667 Balance 840 / 1361.667 521.667 / 1361.667 Intake: IV 50 / 171.667 121.667 / 171.667 Oral 790 / 1190 400 / 1190 Other: Comment Per pt. report, void x 1 in the toilet. Per pt. report, void x 1 in the toilet. Voiding Methods Toilet Toilet Data Completed and Pending Labs on day of discharge: Labs from last 24 hours 07/01/23 07:20 WBC 9.14 RBC 4.28 L Hgb 13.0 L Hct 37.4 L MCV 87 MCH 30.4 MCHC 34.8 RDW 13.2 Plt Count 290 MPV 9.0 Immature Gran % See Differential Neutrophils % 35.0 Lymphocytes % 50.0 Monocytes % 8.0 Eosinophils % 5.0 Basophils % 2.0 Nucleated RBC % 0.0 Absolute Neutrophils 3.20 Absolute Lymphocytes 4.57 H Absolute Monocytes 0.73 Absolute Eosinophils 0.46 Absolute Basophils 0.18 RBC Morphology Normal Sodium 138 Potassium 4.2 Chloride 104 Carbon Dioxide 24.9 Anion Gap 9.1 BUN 15 Creatinine 0.9 Est GFR (CKD-EPI 2020) 108.68 Glucose 112 H Calcium 9.4 PFSH All Active Problems (Updated 06/30/23 @ 18:25 by Irena Elder APRN) Discharge planning issues (Acute) Fever (Acute) Pain management (Acute) Tobacco abuse (Acute) On deep vein thrombosis (DVT) prophylaxis (Acute) Leukocytosis (leucocytosis) (Acute) Cellulitis of leg, right (Acute) Social History Smoking/Tobacco Use Status: Current every day Tobacco Type: cigarettes Smoking risk assessment performed?: Yes Alcohol Intake: former Drug use: Daily Substance use type: marijuana Housing: house Do you feel safe at home: Yes Do you feel safe in your relationship?: Yes Time Spent with Patient Time Spent with Patient: <45 minutes Time was spent: preparing to see the patient(eg.review tests), ordering medications,tests, procedures, referring, communicating with other health manager medicare marketing, indepentently interpreting results, counseling the patient and care coordination
[2023-07-01 11:03] VITALS: BP 120/78; PULSE 78; RESP 18; TEMP 36.5; O2SAT 96
--- NOTE | 2023-07-01 13:11 | PDOC.CMDIS ---
Date of service: 07/01/23 Time of Service: 13:11 LACE Index Scoring Tool Questions: Length of Stay (in days): 4 - 6 Was the patient admitted via the E.D.?: Yes E.D. Visits: 2 Answers: Total Score: 9 Risk of Readmission: Low Risk Care Management Discharge Plan Reason for Hospitalization: Cellulitis of right leg Discharge Plan: [place] returned home today with no new services. He was transported home via private vehicle by a friend. CM provided a return to work letter, as requested by the provider, stating that he will be cleared to return to work by his PCP, who will also fill out [facility] paperwork. He will follow up with his PCP on 07/13/23 and his discharge plan of care. He is happy to be going home. Patient/Family Education Needs: Review discharge instructions and limitations, discussion of self care needs including ask me three.
== END 2023-07-01 12:26 | disposition home or self-care (01) | DRG 603 ==
LOC: ER 21:56 → MS 22:41
PROVIDERS: Nurse Practitioner Acute Care; Admitting Provider Family Medicine; Emergency Provider Registered Nurse Emergency; PCP Nurse Practitioner Family; Visit Provider Family Medicine
DX: L03.115 Cellulitis of right lower limb (principal); D72.828 Other elevated white blood cell count; Z79.899 Other long term (current) drug therapy; F17.210 Nicotine dependence, cigarettes, uncomplicated; R52 Pain, unspecified
CPT/HCPCS: 00123; 36415; 80048; 80053; 80076; 85027; 87635; 87641; 96361; 96365; 96375; 97162; 99285; J1650; 73701; 83605; 83735; 85025; 87070; 87205; 99222; 99232; 99238; J0690; J1885; J3490

== ENCOUNTER 2023-07-13 13:22 | Outpatient (REF) | payer OTHER, SELFPAY | END 2023-07-13 13:23 | disposition home or self-care (01) | LOC: NCHCN 13:22 | PROVIDERS: PCP Nurse Practitioner Family; Visit Provider Nurse Practitioner Family | DX: L03.115 Cellulitis of right lower limb (principal) | CPT/HCPCS: 87070; 87205 ==

== ENCOUNTER 2023-08-03 10:23 | Emergency (ER) | payer OTHER, SELFPAY ==
--- NOTE | 2023-08-03 10:30 | RT.EKG_ITS ---
APPROVED REPORT Exam: Resting ECG Reason for Exam: sob, chest pain Patient Location: E HR:82 bpm ECG Measurements Heart Rate 82 AXIS ID 140 P 40 QRSd 91 QRS 40 QT 346 T -15 QTc 403 Conclusion Sinus rhythm...normal P axis, V-rate 60- 99
[2023-08-03 10:33] VITALS: BP 133/89; PULSE 95; O2SAT 100
--- NOTE | 2023-08-03 11:15 | RT.EKG_ITS ---
APPROVED REPORT Exam: Resting ECG Reason for Exam: chest pain Patient Location: E HR:75 bpm ECG Measurements Heart Rate 75 AXIS WV 144 P 30 QRSd 92 QRS 32 QT 355 T 14 QTc 398 Conclusion Sinus rhythm...normal P axis, V-rate 60- 99 ST elev, probable normal early repol pattern no stemi
[2023-08-03 11:38] VITALS: RESP 20
[2023-08-03 11:49] LABS: Abs Immature Grans 0.01 10^3/uL (0.0-0.06); Absolute Basophil Count 0.04 10^3/uL (0.0-0.2); Absolute Eosinophil Count 0.14 10^3/uL (0.0-0.7); Absolute Lymphocyte Count 2.28 10^3/uL (1.2-3.4); Absolute Monocyte Count 0.46 10^3/uL (0.1-0.8); Absolute Neutrophil Count 5.37 10^3/uL (1.2-6.7); Basophils % 0.5; Eosinophils % 1.7; HCT 41.7 % (40.0-50.0); HGB 14.6 g/dL (13.5-17.5); Immature Grans % 0.1; Lymphocytes % 27.5; MCH 30.5 pg (27.0-33.0); MCV 87 fL (80-95); MPV 8.9 fL (8.0-11.0); Monocytes % 5.5; Neutrophils % 64.7; Platelet Count 282 10^3/uL (130-400); RBC 4.78 10^6/uL (4.36-5.78); RDW 12.9 % (11.8-14.1); RDW-SD 40.7 fL
[2023-08-03 12:08] LABS: ALT 35 U/L (16-63); AST 14 U/L (15-37); Albumin 4.1 g/dL (3.4-5.0); Alkaline Phosphatase 81 U/L (46-116); Anion Gap 9.9 mmol/L (3-11); BUN 11 mg/dL (7-18); Bilirubin, Total 0.4 mg/dL (0.2-1.0); CO2 25.1 mmol/L (21.0-32.0); CREATININE 0.9 mg/dL (0.70-1.30); Calcium 9.1 mg/dL (8.5-10.1); Chloride 104 mmol/L (98-107); Estimated GFR 108.68 (mL/min/1.73m2); Glucose 98 mg/dL (74-106); Lipase 47 U/L (16-77); Magnesium 2.1 mg/dL (1.8-2.4); Potassium 3.9 mmol/L (3.5-5.1); Sodium 139 mmol/L (136-145); Total Protein 7.8 g/dL (6.4-8.2)
[2023-08-03 12:09] LABS: Troponin I < 50 ng/L (<or=60)
[2023-08-03 12:20] LABS: D-Dimer 224 ng/mlFEU (<500)
--- NOTE | 2023-08-03 12:44 | ED.GENADUL_ITS ---
Discharge Plan Disposition Patient Disposition: Home Discharge Details Clinical Impression: Chest pain of uncertain etiology Primary Care Provider: Dayanna Mckeon ED Provider: Galo Liz Home Meds and New Rx's Prescriptions: Continued mirtazapine 15 MG tablet 15 mg PO HS lorazepam 1 MG tablet 1 mg PO PRN PRN albuterol sulfate [ProAir HFA] 200 PUFF HFA aerosol inhaler 2 puff Inhalation PRN PRN doxycycline hyclate 100 mg capsule 100 mg PO BID Qty: 14 0RF ibuprofen 600 mg Tablet 600 mg PO Q4H PRN PRN mirtazapine 7.5 mg tablet 7.5 mg PO DAILY Patient Comments: TAKE 1 TABLET BY MOUTH EVERY NIGHT AT BEDTIME WITH 15MG TABLET FOR A TOTAL DOSE OF 22.5MG acetylcysteine 600 mg capsule 1,200 mg PO DAILY Patient Comments: TAKE 2 CAPSULES BY MOUTH EVERY MORNING WITH 2 ADDITIONAL CAPSULES IN THE AFTERNOON / EARLY EVENING NEEDED FOR MOOD Discharge Instructions Instructions: Chest Pain (ED), Anxiety (ED) Additional Instructions: You were seen in the emergency department for chest pain of uncertain etiology, this is most likely due to your anxiety, I would try to take a full dose of lorazepam should you have continued chest pain. Your laboratory workup was negative for blood clot in the lungs, you have had daily chest pain yearly and your troponin is negative your EKG is normal. Try to take Tylenol and ibuprofen and apply gentle heat to the area of pain for possible musculoskeletal causes of chest pain, please follow-up with your primary care provider to schedule an updated treadmill stress test. Please return to the emergency department for any continued chest pain especially with sweating, shortness of breath, dizziness, near fainting Referrals: [facility] [Provider Group] Dayanna Mckeon [Primary Care Provider] - Discharge Data Discharge Date/Time-TO BE ENTERED AT DEPARTURE: 08/03/23 12:55 Medical Decision Making This dictation utilizes [id number] dictation software and may contain unedited grammatical errors. 42 y/o M presents to ED today with a chief complaint of chest pain since 0830 today, almost daily chest pains, negative work-ups in the past, has known anxiety. Patient states he took a half of a 0.5mg Ativan but had no relief, states if this is cardiac chest pains or a heart attack it means he's been having daily heart attacks, not exertional at onset, was driving to work. Patients' medical history: anxiety. Family and social history: noncontributory. Pertinent exam findings / vital signs include benign cardiopulmonary exam, benign abdomen, nontoxic. Differential / pathologies of concern include ACS, Costochondritis, Anxiety, NOT PE. Diagnostic studies of: -CBC, CMP, Trop I, BNP, D-Dimer, EKG. -CBC benign -D-dimer negative -Trop I negative with reliable onset -EKG shows NSR, no ST Changes, Interventions of: -none. ED Course/Assessment/Plan: 42-year-old male presents with chest tightness onset at 830, has been unreliable onset, having daily chest pains for days, troponin negative, D-dimer negative, EKG was within normal limits, I do not suspect any ACS, the patient denies family history of early onset cardiac disease, counseled on following up with his primary care provider for anxiety medication adjustment, perhaps taking full dose of Ativan, outpatient follow-up for possible stress test via treadmill at some point in the future. HEART Score LOW risk. Findings not consistent with ACS, PE. Disposition of Chest Pain of Uncertain Etiology. Patient verbalized understanding of the plan and return to ED criteria and engaged in shared decision making. Medical Records Medical records reviewed: Yes I reviewed the patient's medical records. Lab Data Lab results reviewed: Yes I reviewed the patient's lab results. Labs: Laboratory Tests Range/Units 08/03/23 11:45 WBC (4.4-10.8) 10^3/uL 8.30 RBC (4.36-5.78) 10^6/uL 4.78 Hgb (13.5-17.5) g/dL 14.6 Hct (40.0-50.0) % 41.7 MCV (80-95) fL 87 MCH (27.0-33.0) pg 30.5 MCHC (32.0-36.0) % 35.0 RDW (11.8-14.1) % 12.9 Plt Count (130-400) 10^3/uL 282 MPV (8.0-11.0) fL 8.9 Immature Gran % 0.1 Neutrophils % 64.7 Lymphocytes % 27.5 Monocytes % 5.5 Eosinophils % 1.7 Basophils % 0.5 Nucleated RBC % (0.0-0.3) % 0.0 Absolute Neutrophils (1.2-6.7) 10^3/uL 5.37 Absolute Lymphocytes (1.2-3.4) 10^3/uL 2.28 Absolute Monocytes (0.1-0.8) 10^3/uL 0.46 Absolute Eosinophils (0.0-0.7) 10^3/uL 0.14 Absolute Basophils (0.0-0.2) 10^3/uL 0.04 D-Dimer (<500) ng/mlFEU 224 Sodium (136-145) mmol/L 139 Potassium (3.5-5.1) mmol/L 3.9 Chloride (98-107) mmol/L 104 Carbon Dioxide (21.0-32.0) mmol/L 25.1 Anion Gap (3-11) mmol/L 9.9 BUN (7-18) mg/dL 11 Creatinine (0.70-1.30) mg/dL 0.9 Est GFR (CKD-EPI 2020) (mL/min/1.73m2) 108.68 Glucose (74-106) mg/dL 98 Calcium (8.5-10.1) mg/dL 9.1 Magnesium (1.8-2.4) mg/dL 2.1 Total Bilirubin (0.2-1.0) mg/dL 0.4 AST (15-37) U/L 14 L ALT (16-63) U/L 35 Alkaline Phosphatase (46-116) U/L 81 Troponin I (<or=60) ng/L < 50 Total Protein (6.4-8.2) g/dL 7.8 Albumin (3.4-5.0) g/dL 4.1 Lipase (16-77) U/L 47 HPI General Date/Time Provider Initiated Documentation: 08/03/23 11:29 . HPI Narrative: 42 year-old male presents to ED today by POV/ambulating with a chief complaint of chest pain since 829, history of panic attacks, multiple negative work-ups in the past for chest pain. Quality described as chest tightness, no radiation to onset with exertion, diaphoresis, syncope, does endorse some shortness of breath. Severity is described as moderate. Palliating factors include took 0.25mg PO Ativan with no relief. Provoking factors include nothing specific. Events leading up to the incident/Associated Symptoms: Patient does have stressors over work lately. Patient not anticoagulated. Related Data Home Medications Medication Instructions Recorded Confirmed albuterol sulfate 90 mcg/actuation 2 puff inhalation PRN PRN 12/04/15 06/27/23 aerosol inhaler (ProAir HFA) lorazepam 1 mg tablet 1 mg PO PRN PRN 12/04/15 06/27/23 mirtazapine 15 mg tablet 15 mg PO HS 12/04/15 06/27/23 ibuprofen 600 mg tablet 600 mg PO Q4H PRN PRN 10/11/18 06/27/23 acetylcysteine 600 mg capsule 1,200 mg PO DAILY 06/26/23 06/27/23 mirtazapine 7.5 mg tablet 7.5 mg PO DAILY 06/26/23 06/27/23 doxycycline hyclate 100 mg capsule 100 mg PO BID #14 caps 07/01/23 Previous Rx's Medication Instructions Recorded doxycycline hyclate 100 mg capsule 100 mg PO BID #14 caps 07/01/23 Allergies Allergy/AdvReac Type Severity Reaction Status Date / Time bupropion [From Wellbutrin] AdvReac worsens Verified 06/27/23 19:29 anxiety General Stated Complaint: Chest Pain WAYNE: 3 Review of Systems All systems reviewed & are unremarkable except as noted in HPI and below PFSH All Active Problems (Updated 08/03/23 @ 12:49 by Timothy Flynn MD) Chest pain of uncertain etiology (Acute) Fever (Acute) Pain management (Acute) Tobacco abuse (Acute) On deep vein thrombosis (DVT) prophylaxis (Acute) Leukocytosis (leucocytosis) (Acute) Cellulitis of leg, right (Acute) Social History Smoking/Tobacco Use Status: Current every day Tobacco Type: cigarettes Smoking risk assessment performed?: Yes Alcohol Intake: former Drug use: Daily Substance use type: marijuana Housing: house Do you feel safe at home: Yes Do you feel safe in your relationship?: Yes Exam Narrative Exam Narrative: GENERAL APPEARANCE: Well-nourished, non-toxic, awake and alert, atraumatic, no acute distress. SKIN: Warm, pink, dry, intact, without rashes/lesions/ulcerations. HEAD: Normocephalic, atraumatic, normal hair distribution for gender/age. EYES: Pupils PERRLA, EOMs intact without nystagmus, normal conjunctiva, no exudates on lids/lashes. ENT: Nares patent, no circumoral cyanosis, no facial swelling NECK: Supple, trachea midline, painless cervical ROM. LUNGS/CHEST: Lungs CTA bilaterally- no rhonchi/rales/wheezes diffusely, non- labored respirations, normal A/P diameter, symmetrical expansion, no chest wall deformity HEART (CV/PV): Regular rate and rhythm without murmur, no peripheral edema, no JVD. ABDOMEN: Soft, non-distended, no guarding, no tenderness. MSK: Normal ROM, no swelling/deformity to bilateral UEs or LEs, moving all extremities without weakness, no cyanosis, spine midline without tenderness, normal curvature. NEURO: Mental Status AAOx4 - alert to person, place, time, events No facial droop, no forehead involvement. Motor: No focal weakness - strength 5/5 in bilateral UEs and LEs, proximal and distal, symmetric. Sensory: sensation intact to light touch globally. Gait normal: patient ambulated without ataxia into ED room. PSYCH: euthymic, cooperative, pleasant, appropriate speech Course Vital Signs Vital signs: Vital Signs Pulse 95 H 08/03/23 10:33 Blood Pressure 133/89 08/03/23 10:33 Pulse Oximetry 100 08/03/23 10:33 Pulse 95 H 08/03/23 10:33 Respiratory Rate 20 08/03/23 11:38 Respiratory Effort Normal 08/03/23 11:38 Respiratory Depth Normal 08/03/23 11:38 Blood Pressure 133/89 08/03/23 10:33 Blood Pressure Position Sitting 08/03/23 10:33 Pulse Oximetry 100 08/03/23 10:33 Oxygen Delivery Method Room Air 08/03/23 10:33 Oxygen Flow Rate 0 08/03/23 10:33 Lab/Test Results Lab/Test Results: Laboratory Tests Range/Units 08/03/23 11:45 WBC (4.4-10.8) 10^3/uL 8.30 RBC (4.36-5.78) 10^6/uL 4.78 Hgb (13.5-17.5) g/dL 14.6 Hct (40.0-50.0) % 41.7 MCV (80-95) fL 87 MCH (27.0-33.0) pg 30.5 MCHC (32.0-36.0) % 35.0 RDW (11.8-14.1) % 12.9 Plt Count (130-400) 10^3/uL 282 MPV (8.0-11.0) fL 8.9 Immature Gran % 0.1 Neutrophils % 64.7 Lymphocytes % 27.5 Monocytes % 5.5 Eosinophils % 1.7 Basophils % 0.5 Nucleated RBC % (0.0-0.3) % 0.0 Absolute Neutrophils (1.2-6.7) 10^3/uL 5.37 Absolute Lymphocytes (1.2-3.4) 10^3/uL 2.28 Absolute Monocytes (0.1-0.8) 10^3/uL 0.46 Absolute Eosinophils (0.0-0.7) 10^3/uL 0.14 Absolute Basophils (0.0-0.2) 10^3/uL 0.04 D-Dimer (<500) ng/mlFEU 224 Sodium (136-145) mmol/L 139 Potassium (3.5-5.1) mmol/L 3.9 Chloride (98-107) mmol/L 104 Carbon Dioxide (21.0-32.0) mmol/L 25.1 Anion Gap (3-11) mmol/L 9.9 BUN (7-18) mg/dL 11 Creatinine (0.70-1.30) mg/dL 0.9 Est GFR (CKD-EPI 2020) (mL/min/1.73m2) 108.68 Glucose (74-106) mg/dL 98 Calcium (8.5-10.1) mg/dL 9.1 Magnesium (1.8-2.4) mg/dL 2.1 Total Bilirubin (0.2-1.0) mg/dL 0.4 AST (15-37) U/L 14 L ALT (16-63) U/L 35 Alkaline Phosphatase (46-116) U/L 81 Troponin I (<or=60) ng/L < 50 Total Protein (6.4-8.2) g/dL 7.8 Albumin (3.4-5.0) g/dL 4.1 Lipase (16-77) U/L 47
== END 2023-08-03 12:55 | disposition home or self-care (01) ==
PROVIDERS: Emergency Provider Physician Assistant; PCP Nurse Practitioner Family
DX: R07.9 Chest pain, unspecified (principal); F41.9 Anxiety disorder, unspecified; F17.210 Nicotine dependence, cigarettes, uncomplicated
CPT/HCPCS: 80053; 83690; 93005; 99283; 83735; 84484; 85025; 85379; 93010

== ENCOUNTER 2023-09-21 10:53 | Outpatient (REF) | payer OTHER, SELFPAY ==
[2023-09-21 15:57] LABS: Abs Immature Grans 0.02 10^3/uL (0.0-0.06); Absolute Basophil Count 0.07 10^3/uL (0.0-0.2); Absolute Lymphocyte Count 2.86 10^3/uL (1.2-3.4); Absolute Monocyte Count 0.63 10^3/uL (0.1-0.8); Absolute Neutrophil Count 5.33 10^3/uL (1.2-6.7); Basophils % 0.8; Eosinophils % 3.3; HGB 16.5 g/dL (13.5-17.5); Immature Grans % 0.2; Lymphocytes % 31.1; MCH 30.7 pg (27.0-33.0); MCHC 35.1 % (32.0-36.0); MCV 88 fL (80-95); MPV 9.5 fL (8.0-11.0); Monocytes % 6.8; Neutrophils % 57.8; Platelet Count 352 10^3/uL (130-400); RBC 5.37 10^6/uL (4.36-5.78); RDW 12.6 % (11.8-14.1); RDW-SD 40.3 fL; WBC 9.21 10^3/uL (4.4-10.8)
[2023-09-21 16:33] LABS: ALT 90 U/L (16-63); AST 36 U/L (15-37); Albumin 4.3 g/dL (3.4-5.0); Alkaline Phosphatase 87 U/L (46-116); Anion Gap 11.3 mmol/L (3-11); BUN 11 mg/dL (7-18); Bilirubin, Total 0.3 mg/dL (0.2-1.0); CO2 23.7 mmol/L (21.0-32.0); CREATININE 0.9 mg/dL (0.70-1.30); Calcium 9.4 mg/dL (8.5-10.1); Chloride 105 mmol/L (98-107); Estimated GFR 108.01 (mL/min/1.73m2); Glucose 109 mg/dL (74-106); Magnesium 2.3 mg/dL (1.8-2.4); Potassium 4.2 mmol/L (3.5-5.1); Sodium 140 mmol/L (136-145); Total Protein 8.3 g/dL (6.4-8.2)
[2023-09-21 16:42] LABS: Vitamin D 25 Total 31.6 ng/mL (30-100)
[2023-09-21 17:32] LABS: Calculated LDL 152 mg/dL (<100); Cholesterol 222 mg/dL (<200); HDL Cholesterol 42 mg/dL (40-60); Triglyceride 142 mg/dL (<150); Vitamin B12 305 pg/mL (193-986)
== END 2023-09-21 10:54 | disposition home or self-care (01) ==
LOC: NCHCN 10:53
PROVIDERS: PCP Nurse Practitioner Family; Visit Provider Nurse Practitioner Family
DX: Z00.00 Encounter for general adult medical examination without abnormal findings (principal); E78.5 Hyperlipidemia, unspecified; E55.9 Vitamin D deficiency, unspecified; R53.83 Other fatigue; R74.9 Abnormal serum enzyme level, unspecified; Z79.899 Other long term (current) drug therapy
CPT/HCPCS: 80053; 80061; 82306; 82607; 83735; 85025